=== PATIENT | female | born 1955 | race Caucasian/White ===

== ENCOUNTER → 2018-08-05 11:15 | Outpatient (CLI) | payer BC, SELFPAY ==
--- NOTE | 2018-08-05 11:18 | DI.RAD.S_ITS ---
PROCEDURE: XR KNEE RT 3V INDICATIONS: Right knee pain TECHNIQUE: 3 views of the knee were acquired. COMPARISON: [facility], , KNEE 3V LEFT, 03/08/2007, 10:21. FINDINGS: Bones: No fractures or dislocations. Minimal patellofemoral compartment osteophyte formation suggestive of degenerative change. Soft tissues: No joint effusion. No suspicious soft tissue calcifications. IMPRESSION: Minimal degenerative change with no acute osseous abnormality of the right knee. Dictated by: Alban Nguyen M.D. on 08/05/2018 at 12:30 Approved by: Alban Nguyen M.D. on 08/05/2018 at 12:34
== END ==
PROVIDERS: Family Provider Naturopath; PCP Naturopath; Visit Provider Physician Assistant
DX: M25.561 Pain in right knee (principal)
CPT/HCPCS: 73562

== ENCOUNTER → 2020-02-07 18:44 | Outpatient (ROUT) | payer BC, SELFPAY ==
[2020-02-07 18:53] LABS: Appearance Urine UA CLEAR; Bilirubin Urine UA NEGATIVE (NEGATIVE); Color Urine UA YELLOW; Glucose Urine UA NEGATIVE (Negative); Ketones Urine UA NEGATIVE (NEGATIVE); Leukocyte Esterase Urine UA NEGATIVE (NEGATIVE); Nitrite Urine UA NEGATIVE (Negative); Occult Blood Urine UA 3+ (Negative); Protein Urine UA NEGATIVE (Negative); Specific Gravity Urine UA <=1.005 (1.000-1.035); Urobilinogen Urine UA 0.2 E.U./dL (0.2)
[2020-02-07 19:02] LABS: pH Urine UA 6.5 (4.5-8.0)
[2020-02-07 19:04] LABS: Amorphous Sediment Urine 1+; Bacteria Urine Occasional (0-1); Culture Indicated Urine Cult Not Indicated; RBC Urine 5-10/HPF (0-5/HPF); Squamous Epithelial Cell Urine 1-5 /HPF (0-5/HPF); WBC Urine 0-1/HPF (0-5/HPF)
== END ==
PROVIDERS: Family Provider Naturopath; PCP Naturopath; Visit Provider Naturopath
DX: N39.0 Urinary tract infection, site not specified (principal)
CPT/HCPCS: 81001

== ENCOUNTER 2020-02-09 17:37 | Emergency (ER) | payer BC, SELFPAY ==
[2020-02-09 17:55] VITALS: BP 164/95; PULSE 108; RESP 18; TEMP 36.7; O2SAT 97; BMI 33.6
[2020-02-09 18:52] VITALS: BP 147/82; PULSE 96; TEMP 37.2; O2SAT 97
--- NOTE | 2020-02-09 19:00 | ED.ALLEREA ---
HPI - Allergic Reaction General Chief complaint: Allergic Reaction Stated complaint: cloudy urine,body aches,chest tight,asthma,headach Time Seen by Provider: 02/09/20 18:02 Source: patient Mode of arrival: Ambulatory Limitations: no limitations History of Present Illness HPI narrative: 64F non smoker with history of headaches presents with multiple complaints including about 4-5 days of increasing fatigue, squeezing in her chest, nausea, and excessive thirst as well as pelvic fullness, and dysuria. She was seen and evaluated by her primary care provider and diagnosed with the urinary tract infection without nitrofurantoin. She states that the cloudiness of her urine has impressed but other general symptoms have continued to gradually worsen. She denies any fever or chills. She denies exposure to persons known to have COVID-19. She denies recent travel, history of clot, cancer or lower extremity pain, swelling, redness Onset (ago): day(s) Symptoms: difficulty breathing Severity: moderate Treatment prior to arrival: none Previous Allergic Reaction History: none Related Data Home Medications Medication Instructions Recorded Confirmed MULTIMINERAL/MULTIVITAMIN (MINERAL 1 tab PO Q DAY #0 06/28/12 08/13/19 COMPLEX) PANCRELIPASE (#ENZYMES) 1 tab PO Q DAY #0 06/28/12 08/13/19 Previous Rx's Medication Instructions Recorded estradiol 10 mcg vaginal tablet 10 mcg VAG 2XW #30 tab 02/09/18 benzonatate 100 mg capsule 100 mg PO BID PRN #14 cap 07/25/19 ondansetron 4 mg disintegrating 4 mg PO Q6-8H #14 tab 09/03/19 tablet Allergies Allergy/AdvReac Type Severity Reaction Status Date / Time Proton Pump Inhibitors Allergy Mild MIGRAINES Verified 09/03/19 12:10 [PROTON PUMP INHIBITORS] Review of Systems Constitutional Constitutional: Denies chills, Reports fatigue, Denies fever(s), Denies frequent falls, Reports lethargy and Reports weakness Eyes Eyes: Denies change in vision, Denies eye discharge, Denies irritation and Denies loss of vision ENT Ears, Nose, Mouth, and Throat: Denies change in voice, Denies dizziness, Denies neck pain, Denies sore throat and Denies throat swelling Cardiovascular Cardiovascular: Reports chest pain, Denies irregular heart rhythm, Denies lightheadedness, Denies palpitations, Reports dyspnea, Denies dyspnea on exertion and Denies orthopnea Respiratory Respiratory: Denies cough, Reports dyspnea, Denies dyspnea on exertion and Denies wheezing Gastrointestinal Gastrointestinal: Denies abdominal pain, Denies change in bowel habits, Denies diarrhea, Reports nausea and Denies vomiting Musculoskeletal Musculoskeletal: Denies neck pain and Denies numbness Integumentary/Breasts Skin/Breast: Denies pruritus, Denies erythema, Denies rash and Denies wounds Neurologic Neurologic: Denies behavioral changes, Denies confusion, Denies dizziness, Denies frequent falls, Denies loss of vision, Denies numbness and Reports weakness Psychiatric Psychiatric: Denies anxiety, Denies behavioral changes, Denies confusion, Denies depression, Denies homicidal ideation and Denies suicidal ideation Endocrine Endocrine: Reports fatigue, Denies flushing and Denies palpitations Hematologic/Lymphatic Hematologic/Lymphatic: Denies easy bruising Allergic/Immunologic Allergic/Immunologic: Denies urticaria, Denies throat swelling and Denies wheezing Patient History Surgical History History of repair of hiatal hernia Status post knee surgery Family History Father Stomach cancer Lung cancer Social History Smoking Status: Never smoker Smoking Status: Never smoker alcohol intake frequency: 0-2 drinks per day Substance Use Type: does not use Exam Narrative Exam Narrative: GENERAL: [64] year old patient appears stated age. Well-nourished, well-developed patient, in mild distress. HEAD: Atraumatic. Normocephalic. EYES: Pupils equal round and reactive. Extraocular motions intact. No scleral icterus. No injection or drainage. ENT: Moist mucous membranes Nose without bleeding, purulent drainage. Throat without erythema, tonsillar hypertrophy or exudate. Airway patent. NECK: Trachea midline. Non tender CARDIOVASCULAR: Regular rate and rhythm without murmurs, gallops, or rubs. RESPIRATORY: Clear to auscultation. Breath sounds equal bilaterally. No wheezes, rales, or rhonchi. GASTROINTESTINAL: Abdomen soft, non-tender, nondistended. EXTREMITIES: No edema or joint tenderness. BACK: Nontender without deformity or crepitance. No flank tenderness. NEURO: AOx3. SKIN: No rash or erythema of visible areas Initial Vital Signs Initial Vital Signs: Vital Signs Temperature 98.1 F 02/09/20 17:55 Pulse Rate 108 H 02/09/20 17:55 Respiratory Rate 18 02/09/20 17:55 Blood Pressure 164/95 H 02/09/20 17:55 Pulse Oximetry 97 02/09/20 17:55 Course Orders Ordered: ED Orders 02/09/20 20:10 C-Reactive Protein Quant Stat Complete Blood Count AUTO DIFF Stat Comprehensive Metabolic Panel Stat D Dimer Stat Ferritin Stat Lactate Dehydrogenase Stat Procalcitonin Stat Troponin & CK Cardiac Panel Stat 02/09/20 21:00 Urine Microscopic Stat Discontinued Medications Sodium Chloride (Normal Saline 0.9%) 1,000 mls @ 1,000 mls/hr IV BOLUS ONE Stop: 02/09/20 20:07 Last Infusion: 02/09/20 21:54 Dose: 0 mls/hr Documented by: Admin: 02/09/20 20:03 Dose: 1,000 mls/hr Documented by: BLAYNE Vital Signs Vital signs: Vital Signs - 8 hr 02/09/20 21:30 02/09/20 22:29 Pulse Rate 85 81 Respiratory Rate 18 Blood Pressure [Right Arm] 136/80 139/74 Pulse Oximetry 97 98 MDM - Allergic Reaction Lab Data Result diagrams: 02/09/20 20:10 02/09/20 20:10 Labs: Lab Results 02/09/20 02/09/20 02/09/20 Range/Units 20:10 20:10 20:10 WBC 7.3 (4.5-11.0) X10^3/uL RBC 4.51 (4.0-5.2) X10^6/uL Hgb 13.3 (12.0-16.0) g/dL Hct 39.6 (36-46) % MCV 87.9 (80-100) fL MCH 29.6 (26-34) PG MCHC 33.7 (30-36) % RDW 13.9 (11.6-14.8) % Plt Count 342 (150-400) X10^3/uL Neut % (Auto) 60.4 (50-75) % Lymph % (Auto) 22.5 L (25-40) % [place] % (Auto) 13.6 (3-14) % Eos % (Auto) 2.6 (2-4) % Baso % (Auto) 0.9 (0-2) % Neut # (Auto) 4400 (9624-8180) /uL Lymph # (Auto) 1600 (5138-9296) /uL [place] # (Auto) 1000 H (0-900) /uL Eos # (Auto) 200 (0-450) /uL Baso # (Auto) 100 (0-100) /uL D-Dimer 497 H (<230) ng/mL Sodium 138 (137-145) mmol/L Potassium 3.8 (3.4-5.1) mmol/L Chloride 102 (98-107) mmol/L Carbon Dioxide 27 (22-32) mmol/L BUN 16 (7-17) mg/dL Creatinine 0.66 (0.52-1.04) mg/dL Estimated GFR > 60.0 (>60) mL/min BUN/Creatinine Ratio 24.2 H (6-22) Glucose 109 (80-110) mg/dL Calcium 9.6 (8.4-10.2) mg/dL Ferritin 177 (11-264) ng/mL Total Bilirubin 0.2 (0.2-1.3) mg/dL AST 33 (14-36) IU/L ALT 30 (<35) IU/L Alkaline Phosphatase 102 (38-126) U/L Lactate Dehydrogenase (313-618) U/L Total Creatine Kinase 53 (30-135) U/L CK-MB (CK-2) TNP CK-MB (CK-2) Rel Index TNP Troponin I < 0.012 (0.01-0.034) ng/mL C-Reactive Protein 3.0 H (<1.0) mg/dL Total Protein 7.6 (6.3-8.2) g/dL Albumin 4.4 (3.5-5.0) g/dL Globulin 3.2 (1.7-4.1) g/dL Albumin/Globulin Ratio 1.4 (1.0-2.8) Procalcitonin (<0.5) ng/mL Urine RBC (0-5/HPF) Urine WBC (0-5/HPF) Ur Squamous Epith Cells (0-5/HPF) Urine Bacteria (None) Ur Culture Indicated? 02/09/20 02/09/20 02/09/20 Range/Units 20:10 20:10 21:00 WBC (4.5-11.0) X10^3/uL RBC (4.0-5.2) X10^6/uL Hgb (12.0-16.0) g/dL Hct (36-46) % MCV (80-100) fL MCH (26-34) PG MCHC (30-36) % RDW (11.6-14.8) % Plt Count (150-400) X10^3/uL Neut % (Auto) (50-75) % Lymph % (Auto) (25-40) % [place] % (Auto) (3-14) % Eos % (Auto) (2-4) % Baso % (Auto) (0-2) % Neut # (Auto) (7678-9040) /uL Lymph # (Auto) (3474-4978) /uL [place] # (Auto) (0-900) /uL Eos # (Auto) (0-450) /uL Baso # (Auto) (0-100) /uL D-Dimer (<230) ng/mL Sodium (137-145) mmol/L Potassium (3.4-5.1) mmol/L Chloride (98-107) mmol/L Carbon Dioxide (22-32) mmol/L BUN (7-17) mg/dL Creatinine (0.52-1.04) mg/dL Estimated GFR (>60) mL/min BUN/Creatinine Ratio (6-22) Glucose (80-110) mg/dL Calcium (8.4-10.2) mg/dL Ferritin (11-264) ng/mL Total Bilirubin (0.2-1.3) mg/dL AST (14-36) IU/L ALT (<35) IU/L Alkaline Phosphatase (38-126) U/L Lactate Dehydrogenase 465 (313-618) U/L Total Creatine Kinase (30-135) U/L CK-MB (CK-2) CK-MB (CK-2) Rel Index Troponin I (0.01-0.034) ng/mL C-Reactive Protein (<1.0) mg/dL Total Protein (6.3-8.2) g/dL Albumin (3.5-5.0) g/dL Globulin (1.7-4.1) g/dL Albumin/Globulin Ratio (1.0-2.8) Procalcitonin 0.10 (<0.5) ng/mL Urine RBC 1-5/hpf (0-5/HPF) Urine WBC None seen (0-5/HPF) Ur Squamous Epith Cells 1-5 /hpf (0-5/HPF) Urine Bacteria None seen (None) Ur Culture Indicated? Cult not indicated Urine Dip Bedside Urine Glucose Negative Bedside Urine Bilirubin - Negative Bedside Urine Ketone - Negative Urine Specific [place] 1.015 Bedside Urine Occult Blood +++ Bedside Urine pH 6.0 Bedside Urine Protein - Negative Bedside Urine Urobilinogen - Negative Bedside Urine Nitrite - Negative Bedside Urine Leukocytes - Negative Esterase Imaging Data Chest x-ray: Radiologist's Impression: [address] [address] XRay Report Signed Patient: Leeann Tena [facility]#: [id number] : 7Acct:[id number] Age/Sex: 64 / FDate of Service: 02/09/20 Loc: ED Accession Number: [id number] Procedure: XR chest 1V Ordering Provider: Jose Toth D.O. PROCEDURE: XR CHEST 1V INDICATIONS: SOB, chest tightness TECHNIQUE: One view of the chest was acquired. COMPARISON: [facility], , CHEST 2 VIEW, 07/04/2017, 11:25. FINDINGS: Surgical changes and devices: None. Lungs and pleura: Increase trunk vascular markings and bilateral hilar region are seen. No focal infiltrate. No pleural effusions or pneumothorax. Mediastinum: Mediastinal contours appear normal. Heart size is normal. Bones and chest wall: No suspicious bony lesions. Overlying soft tissues appear unremarkable. IMPRESSION: Finding may represent mild reactive airway disease. No focal infiltrate, pleural effusion or pneumothorax. Dictated by: Jayce Wadsworth M.D. on 02/09/2020 at 19:24 Approved by: Jayce Wadsworth M.D. on 02/09/2020 at 19:25 MDM Narrative Medical decision making narrative: 64F with multiple vague symptoms and concern of allergy to nitrofurantoin, however symptoms started a few days before nitrofurantoin. Subtle lab abnormalities could be consistent with early or mild COVID, swab pending. Though DDimer is elevated it is normal when age corrected. Return precautions given and questions answered to her apparent satisfaction. Discharge Plan Departure Patient Disposition: Home Clinical Impression: Dysuria Fatigue Qualifiers: Fatigue type: unspecified Qualified Code(s): R53.83 - Other fatigue Discharge Date/Time: 02/09/20 22:34 Instructions: DI for Dysuria -- Adult, Coronavirus Disease 2019 Activity Restrictions/Additional Instructions: *You have been diagnosed with [ dysuria and fatigue, your symptoms and some labs are moderately suspicious for coronavirus] *What to do: * per recommendations from the CDC and the [facility] Department of Health * stay home except to get medical care. Restrict activities outside your home, except for getting medical care. Do not go to work, school, or public areas. Avoid using public transportation, ride sharing, or taxis. * separate yourself from other people in your home. * call ahead before visiting your doctor * Wear a facemask * Cover your coughs and sneezes * Clean your hands often * Avoid sharing household items * Clean all high-touch services every day * Monitor your symptoms and seek prompt medical attention if your illness is worsening, particularly with difficulty in breathing. Discussed continuing home isolation * for individuals with symptoms who are confirmed or suspected cases of COVID-19 and are directed to care for themselves at home, discontinue home isolation under the following conditions: 1. At least 72 hours have passed since recovery, defined as resolution of fever without the use of fever reducing medications, and improvement in respiratory symptoms (cough, shortness of breath) AND, 2. At least 7 days have passed since symptoms 1st appeared Individuals with laboratory confirmed COVID-19 who have not had any symptoms may discontinue home isolation when at least 7 days have passed since the date of their 1st COVID-19 diagnostic test and have had no subsequent illness Prescriptions: No Action benzonatate [Tessalon Perles] 100 mg capsule 100 mg PO BID PRN (Reason: cough) Qty: 14 RF: 0 ondansetron 4 mg tablet,disintegrating 4 mg PO Q6-8H Qty: 14 RF: 0 MULTIMINERAL/MULTIVITAMIN (MINERAL COMPLEX) 1 tab PO Q DAY Qty: 0 RF: 0 PANCRELIPASE (#ENZYMES) 1 tab PO Q DAY Qty: 0 RF: 0 estradiol [Yuvafem] 10 mcg tablet 10 mcg VAG 2XW Qty: 30 RF: 8 Referrals: Amina Allen ND [Primary Care Provider] -
--- NOTE | 2020-02-09 19:09 | DI.RAD.S_ITS ---
PROCEDURE: XR CHEST 1V INDICATIONS: SOB, chest tightness TECHNIQUE: One view of the chest was acquired. COMPARISON: [facility], , CHEST 2 VIEW, 07/04/2017, 11:25. FINDINGS: Surgical changes and devices: None. Lungs and pleura: Increase trunk vascular markings and bilateral hilar region are seen. No focal infiltrate. No pleural effusions or pneumothorax. Mediastinum: Mediastinal contours appear normal. Heart size is normal. Bones and chest wall: No suspicious bony lesions. Overlying soft tissues appear unremarkable. IMPRESSION: Finding may represent mild reactive airway disease. No focal infiltrate, pleural effusion or pneumothorax. Dictated by: Jayce Wadsworth M.D. on 02/09/2020 at 19:24 Approved by: Jayce Wadsworth M.D. on 02/09/2020 at 19:25
[2020-02-09] MEDS: SODIUM CHLORIDE 0.9% 1,000 ML 1000 ML IV (20:03)
[2020-02-09 20:25] VITALS: BP 134/82; PULSE 90; O2SAT 97
[2020-02-09 20:26] LABS: Add Manual Diff / Slide Review NO; Basophils Absolute Auto 100 /uL (0-100); Basophils Percent Auto 0.9 % (0-2); Eosinophils Absolute Auto 200 /uL (0-450); Eosinophils Percent Auto 2.6 % (2-4); Hematocrit 39.6 % (36-46); Hemoglobin 13.3 g/dL (12.0-16.0); Lymphocytes Absolute Auto 1600 /uL (1100-4500); Lymphocytes Percent Auto 22.5 % (25-40); Mean Corpuscular HGB Conc 33.7 % (30-36); Mean Corpuscular Hemoglobin 29.6 PG (26-34); Mean Corpuscular Volume 87.9 fL (80-100); Monocytes Absolute Auto 1000 /uL (0-900); Monocytes Percent Auto 13.6 % (3-14); Neutrophils Absolute Auto 4400 /uL (1500-7000); Neutrophils Percent Auto 60.4 % (50-75); Platelet Count 342 X10^3/uL (150-400); Red Blood Cell Count 4.51 X10^6/uL (4.0-5.2); Red Cell Distribution Width 13.9 % (11.6-14.8); White Blood Cell Count 7.3 X10^3/uL (4.5-11.0)
--- NOTE | 2020-02-09 20:26 | PC.NURSE ---
Pt reports over past 5 days has had increasing sx's of fatigue, body aches, and UTI sx's of burning/urgency. Pt states started on antibiotics for UTI x 2 days ago, however reports concern for possible allergic reaction to medication with increasing fatigue and today developing mid sternal chest tightness. Pt denies SOB/STEVIE, pt speaking clear full sentences with ease reports dry cough, for several months, but have had intermittent cough with yellow sputum for past few days. Pt denies any recent injury/trauma to chest, no bruising/swelling noted to chest. Pt denies reproducible pain with palpation to chest. Pt also c/o skin rash to L shoulder that also started x 5 days ago, mild scratch/scab like appearance noted to back of L shoulder, no active drainage or redness noted around site. Pt denies fever/chills, denies any known exposure to persons with similar sx's or Coronavirus. Pt in NAD.
[2020-02-09 20:36] LABS: D Dimer 497 ng/mL (<230)
[2020-02-09 20:37] LABS: Alanine Aminotransferase 30 IU/L (<35); Albumin 4.4 g/dL (3.5-5.0); Albumin Globulin Ratio 1.4 (1.0-2.8); Alkaline Phosphatase 102 U/L (38-126); Aspartate Aminotransferase 33 IU/L (14-36); BUN Creatinine Ratio 24.2 (6-22); Bilirubin Total 0.2 mg/dL (0.2-1.3); Blood Urea Nitrogen 16 mg/dL (7-17); Calcium 9.6 mg/dL (8.4-10.2); Carbon Dioxide 27 mmol/L (22-32); Chloride 102 mmol/L (98-107); Creatine Kinase 53 U/L (30-135); Estimated Glomerular Filt Rate > 60.0 mL/min (>60); Globulin 3.2 g/dL (1.7-4.1); Glucose 109 mg/dL (80-110); HEMOLYSIS < 15 (0-50); Potassium 3.8 mmol/L (3.4-5.1); Sodium 138 mmol/L (137-145); Total Protein 7.6 g/dL (6.3-8.2)
[2020-02-09 20:50] LABS: Troponin I < 0.012 ng/mL (0.01-0.034)
[2020-02-09 21:12] LABS: Lactate Dehydrogenase 465 U/L (313-618)
[2020-02-09 21:13] LABS: Ferritin 177 ng/mL (11-264)
[2020-02-09 21:18] LABS: Bacteria Urine None Seen; WBC Urine None Seen (0-5/HPF)
[2020-02-09 21:30] VITALS: BP 136/80; PULSE 85; O2SAT 97
[2020-02-09 21:37] LABS: Culture Indicated Urine Cult Not Indicated; RBC Urine 1-5/HPF (0-5/HPF); Squamous Epithelial Cell Urine 1-5 /HPF (0-5/HPF)
[2020-02-09 22:29] VITALS: BP 139/74; PULSE 81; RESP 18; O2SAT 98
[2020-02-11 19:50] LABS: COVID19 Sendout Not Detected (Not Detect)
== END 2020-02-09 22:34 | disposition home or self-care (01) ==
PROVIDERS: Emergency Provider Emergency Medicine; Family Provider Naturopath; PCP Naturopath
DX: R30.0 Dysuria (principal); R53.83 Other fatigue; R06.02 Shortness of breath; R07.89 Other chest pain
CPT/HCPCS: 36415; 71045; 80053; 81003; 81015; 82550; 82728; 83615; 84145; 84484; 85025; 85379; 86140; 87635; 93005; 96360; 96361; 99284

== ENCOUNTER → 2020-02-14 08:00 | Outpatient (CLI) | payer BC, SELFPAY ==
[2020-02-14 08:54] LABS: Add Manual Diff / Slide Review NO; Basophils Absolute Auto 100 /uL (0-100); Eosinophils Absolute Auto 200 /uL (0-450); Eosinophils Percent Auto 2.3 % (2-4); Hematocrit 38.9 % (36-46); Hemoglobin 13.1 g/dL (12.0-16.0); Lymphocytes Absolute Auto 2000 /uL (1100-4500); Lymphocytes Percent Auto 22.8 % (25-40); Mean Corpuscular HGB Conc 33.8 % (30-36); Mean Corpuscular Hemoglobin 29.7 PG (26-34); Monocytes Absolute Auto 700 /uL (0-900); Monocytes Percent Auto 8.1 % (3-14); Neutrophils Absolute Auto 5600 /uL (1500-7000); Neutrophils Percent Auto 65.8 % (50-75); Platelet Count 392 X10^3/uL (150-400); Red Blood Cell Count 4.42 X10^6/uL (4.0-5.2); Red Cell Distribution Width 13.8 % (11.6-14.8); White Blood Cell Count 8.6 X10^3/uL (4.5-11.0)
[2020-02-14 08:58] LABS: Prothrombin Time 11.5 SECONDS (10.1-12.7)
[2020-02-14 09:01] LABS: D Dimer 469 ng/mL (<230)
== END ==
PROVIDERS: Family Provider Naturopath; PCP Naturopath; Referring Provider Naturopath; Visit Provider Naturopath
DX: R79.1 Abnormal coagulation profile (principal)
CPT/HCPCS: 36415; 85025; 85379; 85610; 86140

== ENCOUNTER → 2020-03-24 13:30 | Outpatient (CLI) | payer BC, SELFPAY ==
--- NOTE | 2020-03-24 | DI.US.S_ITS ---
PROCEDURE: US ABDOMEN COMPLETE INDICATIONS: LEFT UPPER QUADRANT PAIN TECHNIQUE: Real-time scanning was performed of the abdominal and retroperitoneal organs, with image documentation. COMPARISON: [facility], US, ABDOMEN COMPLETE, 08/25/2015, 15:36. FINDINGS: Liver: Liver is normal in size and homogeneous in echotexture. Simple appearing incidental hepatic cyst measuring 1.2 cm. Gallbladder: Unremarkable. No sonographic Desouza sign. Biliary ducts: Intrahepatic bile ducts are non-dilated. Extrahepatic bile duct caliber measures 3-4 mm. Normal is 6-7 mm or less in diameter, or 10 mm or less post-cholecystectomy. Pancreas: Visualized portions of the pancreas are sonographically normal. Spleen: Spleen is normal in size and homogeneous in echotexture. Kidneys: Kidneys are normal in size and echotexture. Right kidney measures 9.9 cm long; left kidney measures 10.0 cm long. No hydronephrosis or nephrolithiasis. No solid masses. Aorta: Visualized aorta is normal in caliber at less than 3 cm. Iliacs: Proximal common iliac arteries are normal in caliber at less than 2.5 cm. IVC: Intrahepatic inferior vena cava is patent. Miscellaneous: No free abdominal fluid. IMPRESSION: Negative examination as above. Dictated by: Long Forman M.D. on 03/24/2020 at 16:21 Approved by: Long Forman M.D. on 03/24/2020 at 16:23
[2020-03-24 14:48] LABS: Add Manual Diff / Slide Review NO; Basophils Absolute Auto 100 /uL (0-100); Basophils Percent Auto 0.9 % (0-2); Eosinophils Absolute Auto 200 /uL (0-450); Eosinophils Percent Auto 1.9 % (2-4); Hematocrit 38.9 % (36-46); Hemoglobin 12.8 g/dL (12.0-16.0); Lymphocytes Absolute Auto 2300 /uL (1100-4500); Lymphocytes Percent Auto 20.2 % (25-40); Mean Corpuscular HGB Conc 32.8 % (30-36); Mean Corpuscular Hemoglobin 28.9 PG (26-34); Mean Corpuscular Volume 87.9 fL (80-100); Monocytes Absolute Auto 900 /uL (0-900); Monocytes Percent Auto 7.8 % (3-14); Neutrophils Absolute Auto 8000 /uL (1500-7000); Neutrophils Percent Auto 69.2 % (50-75); Platelet Count 397 X10^3/uL (150-400); Red Blood Cell Count 4.42 X10^6/uL (4.0-5.2); Red Cell Distribution Width 13.9 % (11.6-14.8); White Blood Cell Count 11.5 X10^3/uL (4.5-11.0)
[2020-03-24 15:07] LABS: Alanine Aminotransferase 17 IU/L (<35); Albumin 4.5 g/dL (3.5-5.0); Albumin Globulin Ratio 1.4 (1.0-2.8); Alkaline Phosphatase 96 U/L (38-126); Aspartate Aminotransferase 28 IU/L (14-36); Bilirubin Total 0.3 mg/dL (0.2-1.3); Bilirubin Unconjugated 0.2 mg/dL (0.0-1.1); Globulin 3.2 g/dL (1.7-4.1); HEMOLYSIS 27 (0-50); Total Protein 7.7 g/dL (6.3-8.2)
[2020-03-24 16:34] LABS: Thyroid Stimulating Hormone 1.44 uIU/mL (0.47-4.68)
== END ==
PROVIDERS: Family Provider Naturopath; PCP Naturopath; Referring Provider Naturopath; Visit Provider Naturopath
DX: R10.12 Left upper quadrant pain (principal); D72.829 Elevated white blood cell count, unspecified; R94.5 Abnormal results of liver function studies; R79.89 Other specified abnormal findings of blood chemistry; R53.83 Other fatigue
CPT/HCPCS: 36415; 76700; 80076; 84443; 85025

== ENCOUNTER → 2020-03-26 10:24 | Outpatient (CLI) | payer BC, SELFPAY ==
[2020-03-26 10:40] LABS: Bacteria Urine None Seen; WBC Urine None Seen (0-5/HPF)
[2020-03-26 11:50] LABS: Appearance Urine UA CLEAR; Bilirubin Urine UA NEGATIVE (NEGATIVE); Color Urine UA YELLOW; Glucose Urine UA NEGATIVE (Negative); Ketones Urine UA NEGATIVE (NEGATIVE); Leukocyte Esterase Urine UA NEGATIVE (NEGATIVE); Nitrite Urine UA NEGATIVE (Negative); Occult Blood Urine UA 3+ (Negative); Protein Urine UA NEGATIVE (Negative); Urobilinogen Urine UA 0.2 E.U./dL (0.2)
[2020-03-26 11:54] LABS: Culture Indicated Urine Cult Not Indicated; RBC Urine 5-10/HPF (0-5/HPF); Squamous Epithelial Cell Urine 1-5 /HPF (0-5/HPF)
[2020-03-26 12:03] LABS: Erythrocyte Sedimentation Rate 54 MM/HR (0-20)
[2020-03-26 12:24] LABS: C-Reactive Protein Quant 3.1 mg/dL (<1.0)
[2020-03-26 13:10] LABS: Vitamin B12 965 pg/mL (239-931)
[2020-03-27 21:36] LABS: ANA Screen, IFA Negative (.)
[2020-03-28 09:09] LABS: Albumin 3.4 g/dL (2.9-4.4); Alpha-1-Globulin 0.3 g/dL (0.0-0.4); Globulin Total 3.4 g/dL (2.2-3.9); Protein, Total 6.8 g/dL (6.0-8.5)
[2020-03-31 10:32] LABS: BUN Creatinine Ratio 26.8 (6-22); Blood Urea Nitrogen 26 mg/dL (7-17)
== END ==
PROVIDERS: Family Provider Naturopath; PCP Naturopath; Referring Provider Student in an Organized Health Care Education/Training Program; Visit Provider Student in an Organized Health Care Education/Training Program
DX: G62.9 Polyneuropathy, unspecified (principal); R31.9 Hematuria, unspecified; W57.XXXA Bitten or stung by nonvenomous insect and other nonvenomous arthropods, initial encounter
CPT/HCPCS: 36415; 81001; 82565; 82607; 84155; 84165; 84520; 85651; 86038; 86140; 86617

== ENCOUNTER → 2020-03-28 09:42 | Outpatient (CLI) | payer BC, SELFPAY | PROVIDERS: Family Provider Naturopath; PCP Naturopath | DX: Z13.820 Encounter for screening for osteoporosis (principal); M85.88 Other specified disorders of bone density and structure, other site; Z78.0 Asymptomatic menopausal state | CPT/HCPCS: 77080 ==

== ENCOUNTER → 2020-04-02 08:08 | Outpatient (CLI) | payer BC, SELFPAY ==
--- NOTE | 2020-04-02 08:09 | DI.CT.S_ITS ---
PROCEDURE: CT KIDNEY URETER BLADDER (KUB) INDICATIONS: Persistant hematuria TECHNIQUE: Noncontrast 5 mm thick sections acquired from the diaphragms to the symphysis. 5 mm thick coronal and sagittal reformats were then performed. For radiation dose reduction, the following was used: automated exposure control, adjustment of mA and/or kV according to patient size. COMPARISON: None. FINDINGS: Image quality: Excellent. Lung bases: Lung bases are clear. Heart size is normal. Small hiatal hernia. Urinary system: Both kidneys are normal in size. No kidney stones. No hydronephrosis or perinephric fat stranding. Both ureters appear non-dilated throughout their expected courses. Small phleboliths in the pelvis. Bladder is unremarkable; no calcified bladder stones. Other solid organs: Liver is normal in size. Well-circumscribed hypodensity in the left lobe of the liver most likely represents a benign cyst or hemangioma. Gallbladder is contracted. Pancreas is normal in contours. Punctate pancreatic calcification, unchanged. Mild fatty atrophy. Spleen is normal in size. No adrenal nodules. Peritoneum and bowel: Unenhanced bowel loops demonstrate normal wall thickness and caliber. Tiny colonic diverticuli. Normal appendix. No free fluid or air. Nodes and vessels: No retroperitoneal or mesenteric adenopathy by size criteria. Aorta and inferior vena cava are normal in caliber. Abdominal wall: No ventral hernias. Uterus is unremarkable. Pelvis: No free pelvic fluid. Small fat containing right inguinal hernia. No adenopathy. Bones: No suspicious bony lesions. No vertebral body compression fractures. IMPRESSION: 1. No kidney stones. No hydronephrosis. 2. No obvious renal contour abnormality to suggest mass. 3. No bladder stone. If clinically indicated consider further evaluation with CT IVP in this patient with hematuria. Dictated by: Heriberto Bella M.D. on 04/02/2020 at 9:55 Approved by: Heriberto Bella M.D. on 04/02/2020 at 10:03
== END ==
PROVIDERS: Family Provider Naturopath; PCP Student in an Organized Health Care Education/Training Program; Referring Provider Student in an Organized Health Care Education/Training Program; Visit Provider Student in an Organized Health Care Education/Training Program
DX: R31.9 Hematuria, unspecified (principal)
CPT/HCPCS: 74176

== ENCOUNTER → 2020-04-18 16:05 | Outpatient (CLI) | payer BC, SELFPAY ==
--- NOTE | 2020-04-18 16:24 | DI.MG.S_ITS ---
Patient Name: ONEYDA ONTIVEROS date: 1955 Sex: F Attending Physician: Chuck Indications: Date: 04/18/2020 16:21 At the request of: LUZ AMIN Procedure: MM screening mammo BI BILATERAL DIGITAL SCREENING MAMMOGRAM 3D/2D WITH CAD: 04/18/2020 CLINICAL: Routine screening. Comparison is made to exams dated: 03/29/2017 mammogram, 03/21/2017 mammogram, and 03/18/2016 mammogram - [facility]. There are scattered fibroglandular elements in both breasts. Current study was also evaluated with a Computer Aided Detection (CAD) system. There are benign calcifications in both breasts. No significant masses, calcifications, or other findings are seen in either breast. There has been no significant interval change. IMPRESSION: BENIGN There is no mammographic evidence of malignancy. A 1 year screening mammogram is recommended. This exam was interpreted at Station ID: [id number]. NOTE: For mammograms, a report in lay terms will be sent to the patient. Approximately 15% of breast malignancies will not be visualized mammographically. In the management of a palpable breast mass, a negative mammogram must not discourage biopsy of a clinically suspicious lesion. Electronically Signed By: Chun shipman/lionel:04/18/2020 17:49:40 letter sent: Normal Exam ACR BI-RADS Category 2: Benign Finding(s) 3342F
== END ==
PROVIDERS: Family Provider Naturopath; PCP Naturopath
DX: Z12.31 Encounter for screening mammogram for malignant neoplasm of breast (principal)
CPT/HCPCS: 77063; 77067

== ENCOUNTER → 2020-04-22 11:26 | Outpatient (CLI) | payer BC, SELFPAY ==
[2020-04-23 09:27] LABS: COVID19 Sendout Not Detected (Not Detect)
== END ==
PROVIDERS: Family Provider Naturopath; PCP Naturopath; Visit Provider Nurse Practitioner
DX: Z11.59 Encounter for screening for other viral diseases (principal)
CPT/HCPCS: 87635

== ENCOUNTER 2020-04-25 09:02 | Day surgery (SDC) | payer BC, SELFPAY ==
[2020-04-25] VITALS (8 sets, daily range): BP systolic 116–140; BP diastolic 68–93; PULSE 86–110; RESP 10–20; TEMP 36.9–37; O2SAT 93–99; BMI 33.6
[2020-04-25] MEDS: SODIUM CHLORIDE 0.9% 1,000 ML 200 ML IV (09:14)
--- NOTE | 2020-04-25 09:29 | PM.HP.1 ---
History of Present Illness History of Present Illness Date Patient Seen: 04/25/20 Time Patient Seen: 09:29 Chief complaint: SCREENING COLONOSCOPY Narrative: This is a 64-year-old woman who had a prior colonoscopy in 2011, with recommendation for repeat colonoscopy at this time. She says the polyps were found in the prior colonoscopy, although I do not have access to that note. She denies any melena, hematochezia, unexplained abdominal pain, unexplained weight loss. She denies any family history of colon cancer colon polyps. ROS: Some peripheral neuropathy. Thirteen system review is otherwise negative other than as mentioned below and in HPI. PE GENERAL: Well groomed and cooperative. Appears stated age. Answers questions promptly and appropriately. Vital signs noted. HENT: Normocephalic, atraumatic. Hearing intact. EYES: Conjunctiva pink, sclera white, no periorbital swelling. CARDIOVASCULAR: Regular rate. No pedal edema. RESPIRATORY: Non-tachypneic, breathing comfortably on room air. GASTROINTESTINAL: Abdomen soft and non-distended GENITALURINARY: No flank tenderness. MUSCULOSKELETAL: Equal tone and mass bilaterally. SKIN: Warm, dry, soft, appropriate color for ethnicity. No other lesions, rashes, or wounds. NEURO: Alert and Oriented X 3. No gross sensory deficits, or cognitive issues. PSYCH: Appropriate affect and mood. Patient History Surgical History History of repair of hiatal hernia Status post knee surgery Family & Social History Family History Father Stomach cancer Lung cancer Tobacco & Substance use: Smoking Status Never smoker alcohol intake frequency 0-2 drinks per day Substance Use Type does not use Meds Home Medications and Allergies Home Medications Medication Instructions Recorded Confirmed Type MULTIMINERAL/MULTIVITAMIN (MINERAL 1 tab PO Q DAY #0 06/28/12 03/26/20 History COMPLEX) PANCRELIPASE (#ENZYMES) 1 tab PO Q DAY #0 06/28/12 03/26/20 History estradiol 10 mcg vaginal tablet 10 mcg VAG 2XW #30 tab 02/09/18 03/26/20 Rx Bone-Up by [employer] 6 cap PO .QD 04/08/20 History Allergies Allergy/AdvReac Type Severity Reaction Status Date / Time Proton Pump Inhibitors Allergy Mild MIGRAINES Verified 04/22/20 11:25 [PROTON PUMP INHIBITORS] Assessment & Plan Assessment and plan (1) Personal history of colonic polyps: Status: Acute Assessment & Plan narrative: Risks and benefits of screening colonoscopy and possible polypectomy were discussed with the patient including risk of bleeding, perforation, need for additional procedures, risks of anesthesia. The patient desires to proceed with the colonoscopy procedure. COVID-19 COVID-19 status: Negative Result date/Date tested (Pos, Neg/Pending): 04/22/20 Time Spent With Patient Time with patient: 15-24 minutes Quality VTE Deep Vein Thrombosis/Pulmonary Embolism Present on Admission: No
[2020-04-25] MEDS: MIDAZOLAM 5 MG/5 ML VIAL IV ×3 (09:55→10:03)
[2020-04-25] MEDS: fentaNYL 250 MCG/5 ML INJ IV ×2 (09:55→10:03)
--- NOTE | 2020-04-25 09:55 | P.OP.ENDO_ITS ---
Operative Date/Time/Diagnoses Date of procedure: 04/25/20 Time of procedure: 09:55 Pre-op diagnosis: Normal colonoscopy 12 years ago, here for follow-up colonoscopy Post-op diagnosis: other (Normal colon) Procedure & Clinicians Study performed: Colonoscopy Conscious sedation performed by the endoscopist Indications: Normal colonoscopy 12 years ago, here for follow-up colonoscopy Surgeon: Ann Valiente Procedure Notes SCOAP/Timeout: Performed Procedure in detail: The patient was brought to the room and placed in left lateral decubitus position with all bony prominences padded. A time-out was performed and then the patient was given procedural sedation starting with 4 mg of Versed and 100 mcg of fentanyl. A total of 5 mg of Versed and 150 micro g of fentanyl were given for the entire procedure. Vitals were monitored throughout the procedure and remained stable. Once adequately sedated, the procedure was begun. A rectal exam was performed revealing no abnormalities. The colonoscope was then introduced to the rectum and advanced to the cecum in the usual fashion. The cecum was identified by the appendiceal orifice, the mucosal tri- fold, and the ileocecal valve. The scope was then retracted while rotating side to side and examining each mucosal fold. No polyps or other abnormalities were seen. At the conclusion of the procedure retroflexion was performed and small grade 1-2 internal hemorrhoids without stigmata of bleeding were seen. The scope was then withdrawn from the rectum the procedure was concluded. The patient tolerated the procedure well and was transferred to the PACU in stable condition. Scope withdrawal time: 8 Sedation minutes: 15 Findings: internal hemorrhoids (Small internal hemorrhoids) Specimen(s): none sent Complications: none Impression: Normal colon, small internal hemorrhoids Post-procedure Recommendations: Colonscopy in 10 years Follow up: as needed Disposition: PACU
--- NOTE | 2020-04-25 10:52 | SUR.PHASEII ---
patient tolerating po. Denies pain.
== END 2020-04-25 11:20 | disposition home or self-care (01) ==
PROVIDERS: Family Provider Naturopath; PCP Naturopath; Referring Provider Naturopath; Visit Provider Surgery
PROC: 0DJD8ZZ Inspection of Lower Intestinal Tract, Via Natural or Artificial Opening Endoscopic (ICD-10-PCS; CPT 45378; principal; 2020-04-25 10:00)
DX: Z12.11 Encounter for screening for malignant neoplasm of colon (principal); K64.0 First degree hemorrhoids
CPT/HCPCS: 45378; 99152; J2250; J3010

== ENCOUNTER → 2020-07-10 11:47 | Outpatient (CLI) | payer BC, SELFPAY ==
[2020-07-10 13:16] LABS: BUN Creatinine Ratio 21.6 (6-22); Blood Urea Nitrogen 19 mg/dL (7-17); Calcium 9.6 mg/dL (8.4-10.2); Carbon Dioxide 31 mmol/L (22-32); Chloride 99 mmol/L (98-107); Estimated Glomerular Filt Rate > 60.0 mL/min (>60); Glucose 91 mg/dL (80-110); HEMOLYSIS < 15 (0-50); Potassium 3.9 mmol/L (3.4-5.1); Sodium 136 mmol/L (137-145)
== END ==
PROVIDERS: Family Provider Naturopath; PCP Naturopath; Referring Provider Specialist; Visit Provider Specialist
DX: N28.9 Disorder of kidney and ureter, unspecified (principal)
CPT/HCPCS: 36415; 80048

== ENCOUNTER → 2020-07-14 13:41 | Outpatient (CLI) | payer BC, SELFPAY ==
--- NOTE | 2020-07-14 13:43 | DI.CT.S_ITS ---
PROCEDURE: CT ABDOMEN PELVIS WO/W CON INDICATIONS: hematuria TECHNIQUE: Optional 5 mm thick noncontrast images acquired from the diaphragm to the symphysis pubis. After the administration of intravenous contrast, 5 mm thick images acquired from the diaphragm to the symphysis pubis after a 10-minute delay. 2 mm thick coronal and sagittal reformats were then performed of the kidneys and ureters. For radiation dose reduction, the following was used: automated exposure control, adjustment of mA and/or kV according to patient size. COMPARISON: None. FINDINGS: Image quality: Excellent. Lung bases: Lung bases are clear. Heart size is normal. Urinary system: Both kidneys are normal in size, without hydronephrosis or nephrolithiasis on pre-contrast images. No perinephric fat stranding. There is normal bilateral renal enhancement. Renal calyces appear normal in morphology when filled with contrast. Opacified portions of both ureters demonstrate normal caliber. Bladder wall thickness is normal. No calcified bladder stones. Other solid organs: Liver is normal in size and enhancement. Gallbladder appears normal . Biliary system is non dilated. Pancreas enhances normally. Spleen is normal in size and enhancement. No adrenal nodules. Peritoneum and bowel: Bowel loops demonstrate normal wall thickness and caliber. No free fluid or air. Nodes and vessels: No retroperitoneal or mesenteric adenopathy by size criteria. Aorta and inferior vena cava are normal in size. Abdominal wall: No ventral hernias. Pelvis: No pathologic free pelvic fluid. No inguinal hernias or adenopathy. Bones: No suspicious bony lesions. No vertebral body compression fractures. IMPRESSION: A urinary tract stone is not found. A urothelial or renal cortical mass is not identified. Source of micro hematuria is not seen. Dictated by: Juan R Bravo M.D. on 07/14/2020 at 16:02 Approved by: Juan R Bravo M.D. on 07/14/2020 at 16:03
== END ==
PROVIDERS: Family Provider Naturopath; PCP Naturopath; Referring Provider Specialist; Visit Provider Specialist
DX: R31.9 Hematuria, unspecified (principal)
CPT/HCPCS: 74178; Q9967

== ENCOUNTER → 2020-09-17 07:46 | Outpatient (CLI) | payer BC, SELFPAY ==
[2020-09-17 09:24] LABS: Hematocrit 39.5 % (36-46); Hemoglobin 12.9 g/dL (12.0-16.0); Mean Corpuscular HGB Conc 32.6 % (30-36); Mean Corpuscular Hemoglobin 28.9 PG (26-34); Mean Corpuscular Volume 88.6 fL (80-100); Platelet Count 404 X10^3/uL (150-400); Red Blood Cell Count 4.46 X10^6/uL (4.0-5.2); Red Cell Distribution Width 14.2 % (11.6-14.8); White Blood Cell Count 9.4 X10^3/uL (4.5-11.0)
[2020-09-17 09:48] LABS: BUN Creatinine Ratio 16.1 (6-22); Blood Urea Nitrogen 18 mg/dL (7-17); Calcium 9.2 mg/dL (8.4-10.2); Carbon Dioxide 32 mmol/L (22-32); Chloride 102 mmol/L (98-107); Estimated Glomerular Filt Rate 49.1 mL/min (>60); Glucose 81 mg/dL (80-110); HEMOLYSIS < 15 (0-50); Potassium 4.3 mmol/L (3.4-5.1); Sodium 137 mmol/L (137-145)
[2020-09-17 09:53] LABS: Creatinine Urine Random 74.8 mg/dL; Protein (Total) Urine Random 13 mg/dL (0-12); Protein Creatinine Ratio Urine 0.17 GRAM/24H
== END ==
PROVIDERS: Family Provider Naturopath; PCP Naturopath; Referring Provider Student in an Organized Health Care Education/Training Program; Visit Provider Student in an Organized Health Care Education/Training Program
DX: N05.9 Unspecified nephritic syndrome with unspecified morphologic changes (principal); D70.9 Neutropenia, unspecified; R80.9 Proteinuria, unspecified
CPT/HCPCS: 36415; 80048; 82570; 84156; 85027

== ENCOUNTER → 2020-09-26 09:05 | Outpatient (CLI) | payer BC, SELFPAY ==
[2020-09-26 09:33] LABS: Bacteria Urine None Seen; WBC Urine None Seen (0-5/HPF)
[2020-09-26 10:49] LABS: Appearance Urine UA CLEAR; Bilirubin Urine UA NEGATIVE (NEGATIVE); Color Urine UA YELLOW; Glucose Urine UA NEGATIVE (Negative); Ketones Urine UA NEGATIVE (NEGATIVE); Leukocyte Esterase Urine UA NEGATIVE (NEGATIVE); Nitrite Urine UA NEGATIVE (Negative); Occult Blood Urine UA 3+ (Negative); Protein Urine UA NEGATIVE (Negative); Specific Gravity Urine UA <=1.005 (1.000-1.035); Urobilinogen Urine UA 0.2 E.U./dL (0.2)
[2020-09-26 10:50] LABS: pH Urine UA 6.5 (4.5-8.0)
[2020-09-26 10:58] LABS: Culture Indicated Urine Cult Not Indicated; RBC Urine 5-10/HPF (0-5/HPF); Squamous Epithelial Cell Urine 1-5 /HPF (0-5/HPF)
[2020-09-26 11:19] LABS: Creatinine Urine Random 22.2 mg/dL; Protein (Total) Urine Random 15 mg/dL (0-12); Protein Creatinine Ratio Urine 0.67 GRAM/24H
[2020-09-26 15:10] LABS: Hepatitis B Surface Antigen NEGATIVE s/c (NEGATIVE)
[2020-09-26 15:24] LABS: Hep C Virus Ab w/Reflex Quant NEGATIVE s/c (NEGATIVE)
[2020-09-27 04:16] LABS: Hepatitis B Core Antibody Negative (Negative)
[2020-09-27 06:09] LABS: Complement C3 188 mg/dL (82-167)
[2020-09-27 07:36] LABS: Hepatitis B Surf Ab Qualitativ Non Reactive (.)
[2020-09-27 18:07] LABS: DNA (DS) Antibody 1 IU/mL (0-9)
[2020-09-28 19:26] LABS: ANA Screen, IFA Positive (.)
[2020-09-29 16:27] LABS: Albumin 3.8 g/dL (2.9-4.4); Alpha 1 Globulin 0.3 g/dL (0.0-0.4); Alpha 2 Globulin 0.9 g/dL (0.4-1.0); Beta 1 Globulin 1.2 g/dL (0.7-1.3); Gamma Globulin 1.1 g/dL (0.4-1.8); Protein, Total 7.2 g/dL (6.0-8.5)
[2020-09-30 09:09] LABS: Immunoglobulin A, Serum 105 mg/dL (87-352); Immunoglobulin G,Serum 955 mg/dL (586-1602); Immunoglobulin M, Serum 273 mg/dL (26-217)
[2020-09-30 12:38] LABS: Cytoplasmic C-ANCA <1:20 titer (Neg:<1:20); Perinuclear P-ANCA <1:20 titer (Neg:<1:20)
[2020-09-30 13:36] LABS: M-Spike % Not Observed % (Not Observed); Urine Total Protein <4.0 mg/dL (Not Estab.)
== END ==
PROVIDERS: Family Provider Naturopath; PCP Naturopath; Referring Provider Student in an Organized Health Care Education/Training Program; Visit Provider Student in an Organized Health Care Education/Training Program
DX: L93.2 Other local lupus erythematosus (principal); M31.30 Wegener's granulomatosis without renal involvement; M32.10 Systemic lupus erythematosus, organ or system involvement unspecified; N00.9 Acute nephritic syndrome with unspecified morphologic changes; D89.89 Other specified disorders involving the immune mechanism, not elsewhere classified; B19.10 Unspecified viral hepatitis B without hepatic coma; B17.10 Acute hepatitis C without hepatic coma; D47.2 Monoclonal gammopathy; N30.00 Acute cystitis without hematuria; R80.9 Proteinuria, unspecified
CPT/HCPCS: 36415; 81001; 82570; 82784; 83516; 84155; 84156; 84165; 84166; 86038; 86160; 86225; 86256; 86334; 86335; 86704; 86706; 86803; 87340

== ENCOUNTER → 2020-10-09 15:58 | Outpatient (CLI) | payer BC, SELFPAY ==
[2020-10-09 17:07] LABS: Appearance Urine UA CLEAR; Bilirubin Urine UA NEGATIVE (NEGATIVE); Color Urine UA YELLOW; Glucose Urine UA NEGATIVE (Negative); Ketones Urine UA NEGATIVE (NEGATIVE); Leukocyte Esterase Urine UA NEGATIVE (NEGATIVE); Nitrite Urine UA NEGATIVE (Negative); Occult Blood Urine UA 3+ (Negative); Protein Urine UA NEGATIVE (Negative); Urobilinogen Urine UA 0.2 E.U./dL (0.2)
[2020-10-09 17:08] LABS: Hematocrit 37.7 % (36-46); Hemoglobin 12.7 g/dL (12.0-16.0)
[2020-10-09 17:21] LABS: Amorphous Sediment Urine 1+; Bacteria Urine Occasional (0-1); Culture Indicated Urine Cult Not Indicated; Mucus Urine 1+ (Negative); RBC Urine 5-10/HPF (0-5/HPF); Squamous Epithelial Cell Urine 5-10 /HPF (0-5/HPF); WBC Urine 1-5/HPF (0-5/HPF)
[2020-10-09 17:36] LABS: BUN Creatinine Ratio 26.2 (6-22); Blood Urea Nitrogen 22 mg/dL (7-17); Carbon Dioxide 31 mmol/L (22-32); Chloride 99 mmol/L (98-107); Estimated Glomerular Filt Rate > 60.0 mL/min (>60); Glucose 113 mg/dL (80-110); HEMOLYSIS < 15 (0-50); Potassium 3.9 mmol/L (3.4-5.1); Sodium 136 mmol/L (137-145)
[2020-10-09 17:37] LABS: Protein (Total) Urine Random 10 mg/dL (0-12); Protein Creatinine Ratio Urine 0.06 GRAM/24H
[2020-10-10 06:28] LABS: Parathyroid Hormone Int 65 pg/mL (15-65)
== END ==
PROVIDERS: Family Provider Naturopath; PCP Naturopath; Referring Provider Student in an Organized Health Care Education/Training Program; Visit Provider Student in an Organized Health Care Education/Training Program
DX: N05.9 Unspecified nephritic syndrome with unspecified morphologic changes (principal); D64.9 Anemia, unspecified; N25.81 Secondary hyperparathyroidism of renal origin; N30.00 Acute cystitis without hematuria; R80.9 Proteinuria, unspecified
CPT/HCPCS: 36415; 80048; 81001; 82570; 83970; 84156; 85014; 85018

== ENCOUNTER → 2021-01-15 07:26 | Outpatient (CLI) | payer BC, SELFPAY ==
[2021-01-15 07:40] LABS: Bacteria Urine None Seen
[2021-01-15 08:01] LABS: Appearance Urine UA CLEAR; Bilirubin Urine UA NEGATIVE (NEGATIVE); Color Urine UA YELLOW; Glucose Urine UA NEGATIVE (Negative); Ketones Urine UA NEGATIVE (NEGATIVE); Leukocyte Esterase Urine UA NEGATIVE (NEGATIVE); Nitrite Urine UA NEGATIVE (Negative); Occult Blood Urine UA 3+ (Negative); Protein Urine UA NEGATIVE (Negative); Specific Gravity Urine UA <=1.005 (1.000-1.035); Urobilinogen Urine UA 0.2 E.U./dL (0.2)
[2021-01-15 08:16] LABS: RBC Urine 5-10/HPF (0-5/HPF); WBC Urine 0-1/HPF (0-5/HPF)
[2021-01-15 08:17] LABS: Culture Indicated Urine Cult Not Indicated; Squamous Epithelial Cell Urine 1-5 /HPF (0-5/HPF)
[2021-01-15 09:25] LABS: Protein (Total) Urine Random 14 mg/dL (0-12)
[2021-01-15 09:26] LABS: Blood Urea Nitrogen 19 mg/dL (7-17); Calcium 9.9 mg/dL (8.4-10.2); Carbon Dioxide 33 mmol/L (22-32); Chloride 98 mmol/L (98-107); Estimated Glomerular Filt Rate > 60.0 mL/min (>60); Glucose 86 mg/dL (80-110); HEMOLYSIS < 15 (0-50); Potassium 4.8 mmol/L (3.4-5.1); Sodium 137 mmol/L (137-145)
[2021-01-15 09:32] LABS: Creatinine Urine Random 17.7 mg/dL; Protein Creatinine Ratio Urine 0.79 GRAM/24H
== END ==
PROVIDERS: Family Provider Naturopath; PCP Naturopath; Referring Provider Student in an Organized Health Care Education/Training Program; Visit Provider Student in an Organized Health Care Education/Training Program
DX: N05.9 Unspecified nephritic syndrome with unspecified morphologic changes (principal); N30.00 Acute cystitis without hematuria; R80.9 Proteinuria, unspecified
CPT/HCPCS: 36415; 80048; 81001; 82570; 84156

== ENCOUNTER → 2021-03-20 11:19 | Outpatient (CLI) | payer BC, SELFPAY ==
[2021-03-20 12:23] LABS: Blood Urea Nitrogen 15 mg/dL (7-17); Calcium 9.4 mg/dL (8.4-10.2); Carbon Dioxide 25 mmol/L (22-32); Chloride 101 mmol/L (98-107); Estimated Glomerular Filt Rate > 60.0 mL/min (>60); Glucose 143 mg/dL (80-110); HEMOLYSIS < 15 (0-50); Potassium 4.1 mmol/L (3.4-5.1); Sodium 136 mmol/L (137-145)
[2021-03-20 12:41] LABS: Creatinine Urine Random 23.9 mg/dL; Protein (Total) Urine Random 12 mg/dL (0-12)
== END ==
PROVIDERS: Referring Provider Student in an Organized Health Care Education/Training Program; Visit Provider Student in an Organized Health Care Education/Training Program
DX: N05.9 Unspecified nephritic syndrome with unspecified morphologic changes (principal); R80.9 Proteinuria, unspecified
CPT/HCPCS: 36415; 80048; 82570; 84156

== ENCOUNTER → 2021-06-24 15:27 | Outpatient (CLI) | payer BC, SELFPAY ==
--- NOTE | 2021-06-24 15:29 | DI.RAD.S_ITS ---
PROCEDURE: XR FOOT RT MIN 3V INDICATIONS: RT TOE PAIN TECHNIQUE: 3 views of the foot were acquired. COMPARISON: [facility], , FOOT 3V LEFT, 05/01/2014, 8:24. FINDINGS: Bones: No fractures or dislocations. No suspicious bony lesions. Plantar calcaneal enthesophyte. An accessory navicular is seen. Hallux valgus deformity. Joint space narrowing with osteophytosis of the 1st tarsometatarsal articulation. Soft tissues: No tibiotalar joint effusion. Achilles tendon appears normal. IMPRESSION: 1. No acute osseous abnormality. 2. Joint space narrowing with osteophytosis about the 1st tarsometatarsal articulation. 3. Hallux valgus deformity. 4. Accessory navicular. Dictated by: Anton Metcalf M.D. on 06/24/2021 at 16:05 Approved by: Anton Metcalf M.D. on 06/24/2021 at 16:08
== END ==
PROVIDERS: Referring Provider Nurse Practitioner Family; Visit Provider Nurse Practitioner Family
DX: M79.671 Pain in right foot (principal); M20.11 Hallux valgus (acquired), right foot; M77.31 Calcaneal spur, right foot
CPT/HCPCS: 73630

== ENCOUNTER → 2021-09-30 07:30 | Outpatient (CLI) | payer BC, SELFPAY ==
[2021-09-30 07:52] LABS: Hematocrit 38.1 % (36-46); Hemoglobin 12.9 g/dL (12.0-16.0)
[2021-09-30 08:08] LABS: BUN Creatinine Ratio 24.1 (6-22); Blood Urea Nitrogen 21 mg/dL (7-17); Carbon Dioxide 29 mmol/L (22-32); Chloride 104 mmol/L (98-107); Estimated Glomerular Filt Rate > 60.0 mL/min (>60); Glucose 95 mg/dL (80-110); Potassium 4.7 mmol/L (3.4-5.1); Sodium 137 mmol/L (137-145)
[2021-09-30 08:09] LABS: HEMOLYSIS 114 (0-50)
[2021-09-30 08:19] LABS: Protein (Total) Urine Random 12 mg/dL (0-12); Protein Creatinine Ratio Urine 0.09 GRAM/24H
[2021-10-01 05:17] LABS: Parathyroid Hormone Int 27 pg/mL (15-65)
== END ==
PROVIDERS: PCP Naturopath; Referring Provider Student in an Organized Health Care Education/Training Program; Visit Provider Student in an Organized Health Care Education/Training Program
DX: N05.9 Unspecified nephritic syndrome with unspecified morphologic changes (principal); D64.9 Anemia, unspecified; R80.9 Proteinuria, unspecified; N25.81 Secondary hyperparathyroidism of renal origin
CPT/HCPCS: 36415; 80048; 82570; 83970; 84156; 85014; 85018

== ENCOUNTER → 2022-01-06 07:04 | Outpatient (CLI) | payer BC, SELFPAY ==
[2022-01-06 08:02] LABS: Add Manual Diff / Slide Review NO; Basophils Absolute Auto 100 /uL (0-100); Basophils Percent Auto 1.1 % (0-2); Eosinophils Absolute Auto 200 /uL (0-450); Hematocrit 36.9 % (36-46); Hemoglobin 12.8 g/dL (12.0-16.0); Lymphocytes Absolute Auto 1800 /uL (1100-4500); Lymphocytes Percent Auto 20.7 % (25-40); Mean Corpuscular HGB Conc 34.6 % (30-36); Mean Corpuscular Volume 86.7 fL (80-100); Monocytes Absolute Auto 800 /uL (0-900); Monocytes Percent Auto 8.9 % (3-14); Neutrophils Absolute Auto 5900 /uL (1500-7000); Neutrophils Percent Auto 67.3 % (50-75); Platelet Count 399 X10^3/uL (150-400); Red Blood Cell Count 4.26 X10^6/uL (4.0-5.2); Red Cell Distribution Width 13.9 % (11.6-14.8); White Blood Cell Count 8.7 X10^3/uL (4.5-11.0)
[2022-01-06 08:16] LABS: Alanine Aminotransferase 20 IU/L (<35); Albumin 4.5 g/dL (3.5-5.0); Albumin Globulin Ratio 1.3 (1.0-2.8); Alkaline Phosphatase 90 U/L (38-126); Aspartate Aminotransferase 29 IU/L (14-36); BUN Creatinine Ratio 21.1 (6-22); Bilirubin Total 0.4 mg/dL (0.2-1.3); Blood Urea Nitrogen 16 mg/dL (7-17); C-Reactive Protein Quant 1.9 mg/dL (<1.0); Carbon Dioxide 28 mmol/L (22-32); Chloride 104 mmol/L (98-107); Cholesterol 233 mg/dL (140-199); Estimated Glomerular Filt Rate > 60 mL/min (>60); Globulin 3.5 g/dL (1.7-4.1); Glucose 102 mg/dL (80-110); HDL Cholesterol 66 mg/dL (40-60); HEMOLYSIS < 15 (0-50); LDL Cholesterol Calculated 143 mg/dL (<100); Potassium 3.9 mmol/L (3.4-5.1); Sodium 138 mmol/L (137-145); Triglycerides 119 mg/dL (35-150)
[2022-01-06 08:31] LABS: Vitamin D 25 Hydroxy (D3) 68.5 ng/mL (30.0-100.0)
[2022-01-06 08:47] LABS: Thyroid Stimulating Hormone 2.59 uIU/mL (0.47-4.68)
[2022-01-06 08:49] LABS: Ferritin 83 ng/mL (11-264)
[2022-01-06 09:20] LABS: Folate > 20.0 ng/mL (2.76-20.0); Vitamin B12 > 1000 pg/mL (239-931)
== END ==
PROVIDERS: PCP Naturopath; Referring Provider Naturopath; Visit Provider Naturopath
DX: N18.2 Chronic kidney disease, stage 2 (mild) (principal); R31.9 Hematuria, unspecified; D64.9 Anemia, unspecified
CPT/HCPCS: 36415; 80053; 80061; 82306; 82607; 82728; 82746; 84443; 85025; 86140

== ENCOUNTER 2022-02-05 07:06 | Emergency (ER) | payer BC, SELFPAY ==
[2022-02-05] VITALS (11 sets, daily range): BP systolic 120–151; BP diastolic 68–81; PULSE 66–91; RESP 10–24; TEMP 36.7; O2SAT 98–100; BMI 36.3
--- NOTE | 2022-02-05 07:18 | DI.RAD.S_ITS ---
PROCEDURE: XR CHEST 1V INDICATIONS: chest pain TECHNIQUE: One view of the chest was acquired. COMPARISON: [facility], , XR CHEST 1V, 02/09/2020, 19:13. [facility], , CHEST 2 VIEW, 07/04/2017, 11:25. FINDINGS: Surgical changes and devices: None. Lungs and pleura: Lungs are clear. No pleural effusions or pneumothorax. Mediastinum: Mediastinal contours appear normal. Heart size is normal. Bones and chest wall: No suspicious bony lesions. Overlying soft tissues appear unremarkable. IMPRESSION: No acute cardiopulmonary abnormality. Dictated by: Heriberto Bella M.D. on 02/05/2022 at 8:09 Approved by: Heriberto Bella M.D. on 02/05/2022 at 8:09
[2022-02-05 07:38] LABS: Add Manual Diff / Slide Review NO; Basophils Absolute Auto 100 /uL (0-100); Basophils Percent Auto 1.1 % (0-2); Eosinophils Absolute Auto 200 /uL (0-450); Eosinophils Percent Auto 2.1 % (2-4); Hematocrit 36.4 % (36-46); Hemoglobin 12.4 g/dL (12.0-16.0); Lymphocytes Absolute Auto 2000 /uL (1100-4500); Lymphocytes Percent Auto 23.4 % (25-40); Mean Corpuscular Hemoglobin 29.7 PG (26-34); Mean Corpuscular Volume 87.3 fL (80-100); Monocytes Absolute Auto 800 /uL (0-900); Monocytes Percent Auto 9.8 % (3-14); Neutrophils Absolute Auto 5500 /uL (1500-7000); Neutrophils Percent Auto 63.6 % (50-75); Platelet Count 366 X10^3/uL (150-400); Red Blood Cell Count 4.17 X10^6/uL (4.0-5.2); Red Cell Distribution Width 13.8 % (11.6-14.8); White Blood Cell Count 8.7 X10^3/uL (4.5-11.0)
--- NOTE | 2022-02-05 07:44 | ED_ITS ---
HPI - Chest Pain General Chief Complaint: Chest Pain Stated Complaint: chest pressure Time Seen by Provider: 02/05/22 07:44 Source: patient Mode of arrival: Family Vehicle Limitations: no limitations History of Present Illness HPI narrative: This is a 66-year-old female who developed left shoulder blade and chest p ressure on the left side intermittently yesterday and then consistently overnight and has been persistent. Patient states at this time it sort of left radiates to back through the left shoulder blade and a little bit arm with some tingling into her arm. She notes she has had some shortness of breath with exertion for some time but not having the chest pressure until yesterday. She feels like the shortness of breath is a little bit more intense than normal. Nothing seems to exacerbate or alleviate it. She has not actually tried much movement but has not appreciated anything. She also notes that her heart rate has been and down. The 125 is typically when she is exerting herself and not resting otherwise is normally 60-90. She has not had any syncope or lightheadedness. She denies any swelling, she has chronic cramping on and off in her extremities for years but nothing new, no redness or swelling she is appreciated. No fevers, cold cough or congestion. She gets night sweats pretty much every single night at 5:00 a.m. she starts last night he started at 2:00 a.m. and felt different. She denies any nausea or vomiting. No other GI or urinary symptoms. She has had chronic neck issues sees a chiropractor regularly for all impingement of the nerve. She is on lisinopril, vaginal insert for dryness as well as oral estrogen. She does take an Excedrin headache daily but no other anticoagulants. No prior surgeries. She states she is allergic to GERD medications they gave her migraines. No tobacco, 1 alcoholic drink weekly, no illicit. She states her father had lung and stomach cancer but no cardiac history, no pulmonary or embolic history. She is accompanied by her today. Related Data Home Medications Medication Instructions Recorded Confirmed MULTIMINERAL/MULTIVITAMIN (MINERAL 1 tab PO Q DAY ##0 06/28/12 09/15/21 COMPLEX) PANCRELIPASE (#ENZYMES) 1 tab PO Q DAY ##0 06/28/12 09/15/21 Bone-Up by [employer] 6 cap PO .QD 04/08/20 09/15/21 estrovera PO 06/03/20 09/15/21 lisinopril 2.5 mg tablet 2.5 mg PO DAILY 06/24/21 09/15/21 Previous Rx's Medication Instructions Recorded estradiol 10 mcg vaginal tablet 10 mcg vaginal 2XW vaginal atrophy 02/09/18 (Yuvafem) #30 tabs tramadol 50 mg tablet 50 mg PO QID PRN pain #10 tabs 02/05/22 Allergies Allergy/AdvReac Type Severity Reaction Status Date / Time Proton Pump Inhibitors Allergy Mild MIGRAINES Verified 09/15/21 08:32 [PROTON PUMP INHIBITORS] Review of Systems Review of Systems ROS Unobtainable: All systems reviewed & are unremarkable except as noted in HPI and below Patient History Medical History Arthritis Asthma FHx: migraine headaches GERD (gastroesophageal reflux disease) Microscopic hematuria Postmenopausal atrophic vaginitis Strain of gastrocnemius muscle Surgical History History of repair of hiatal hernia Status post knee surgery Family History Father Stomach cancer Lung cancer Social History household members: spouse Smoking Status: Never smoker Smoking Status: Never smoker alcohol intake frequency: 0-2 drinks per day Substance Use Type: does not use Exam Narrative Exam Narrative: GENERAL: Alert and oriented x three, female in mild distress. HEENT: Head normocephalic, atraumatic, EOMI, pupils reactive, face symmetric, moist mucous membranes NECK: Supple, full range of motion, patient does have a negative Spurling's with rotation the head to the left and extension backwards with compression down the left arm. CARDIOVASCULAR: Regular rate and rhythm without murmurs, rubs or gallops. No reproducible chest discomfort. No rash or skin changes. RESPIRATORY: Breath sounds equal bilaterally, no wheezes rales or rhonchi. No tachypnea or accessory muscle use. ABDOMEN: Soft, nontender. Normoactive bowel sounds all 4 quadrants. No guarding or rebound, rigidity, no mass : No CVA tenderness EXTREMITIES: Normal range of motion, no clubbing or edema. Neurovascularly intact NEUROLOGICAL: Cranial nerves II through XII grossly intact. Moving all extremities SKIN: Warm, dry, no petechiae, no rashes or lesions. Initial Vital Signs Initial Vital Signs: Vital Signs Pulse Rate 91 H 02/05/22 07:12 Respiratory Rate 24 02/05/22 07:12 Pulse Oximetry 98 02/05/22 07:12 Scores HEART Score Heart Score history: Moderately Suspicious Heart Score EKG: Normal Heart Score Age: > or = 65 years old Heart Score risk factors: 1-2 risk factors Heart Score troponin: < or = to normal limit Heart Score Total: 4 PERC Score Age greater than or equal to 50 years: Yes Heart rate greater than or equal to 100 bpm: No Room Air O2 Sat less than 95%: No Unilateral leg swelling: No Recent trauma or surgery: No Hemoptysis: No Prior PE or DVT: No Hormone Use: Yes Total PERC Score: 2 Course Orders Ordered: ED Orders 02/05/22 07:18 XR chest 1V Stat EKG-12 Lead Stat 02/05/22 07:23 Complete Blood Count AUTO DIFF Stat Comprehensive Metabolic Panel Stat Lipase Stat Magnesium Stat Troponin & CK Cardiac Panel Stat 02/05/22 08:09 D Dimer Stat 02/05/22 08:42 CT angio chest PE protocol Stat 02/05/22 09:23 Trop I [Troponin I] Stat Reevaluation(s) Reevaluation #1: Patient still has some chest pressure described as mild in defers anything. Reviewed her findings so far her D-dimer is elevated even with age adjustment so CT PE was ordered. The rest of her workup so far shows no other acute changes. Time: 08:54 Vital Signs Vital signs: Vital Signs - 8 hr 02/05/22 07:19 02/05/22 07:12 02/05/22 07:13 Temperature 98.0 F Pulse Rate 89 91 H Respiratory Rate 18 24 Blood Pressure 151/80 H 151/80 H Pulse Oximetry 98 98 Oxygen Delivery Method Room Air 02/05/22 07:13 02/05/22 07:30 02/05/22 07:30 Temperature Pulse Rate 88 77 Respiratory Rate 20 12 Blood Pressure 129/78 Pulse Oximetry 98 99 Oxygen Delivery Method 02/05/22 08:00 02/05/22 08:00 Temperature Pulse Rate 79 Respiratory Rate 16 Blood Pressure 143/81 H Pulse Oximetry 99 Oxygen Delivery Method MDM - Chest Pain Lab Data Result diagrams: 02/05/22 07:23 02/05/22 07:23 Labs: Lab Results 02/05/22 02/05/22 02/05/22 Range/Units 07:23 07:23 08:09 WBC 8.7 (4.5-11.0) X10^3/uL RBC 4.17 (4.0-5.2) X10^6/uL Hgb 12.4 (12.0-16.0) g/dL Hct 36.4 (36-46) % MCV 87.3 (80-100) fL MCH 29.7 (26-34) PG MCHC 34.0 (30-36) % RDW 13.8 (11.6-14.8) % Plt Count 366 (150-400) X10^3/uL Neut % (Auto) 63.6 (50-75) % Lymph % (Auto) 23.4 L (25-40) % Mcintosh % (Auto) 9.8 (3-14) % Eos % (Auto) 2.1 (2-4) % Baso % (Auto) 1.1 (0-2) % Neut # (Auto) 5500 (8089-4416) /uL Lymph # (Auto) 2000 (9790-0274) /uL Mcintosh # (Auto) 800 (0-900) /uL Eos # (Auto) 200 (0-450) /uL Baso # (Auto) 100 (0-100) /uL D-Dimer 394 H (<230) ng/mL Sodium 139 (137-145) mmol/L Potassium 3.8 (3.4-5.1) mmol/L Chloride 103 (98-107) mmol/L Carbon Dioxide 28 (22-32) mmol/L BUN 21 H (7-17) mg/dL Creatinine 0.7 (0.52-1.04) mg/dL Estimated GFR > 60 (>60) mL/min BUN/Creatinine Ratio 30.0 H (6-22) Glucose 100 (80-110) mg/dL Calcium 9.0 (8.4-10.2) mg/dL Magnesium 2.2 (1.6-2.3) mg/dL Total Bilirubin 0.5 (0.2-1.3) mg/dL AST 27 (14-36) IU/L ALT 18 (<35) IU/L Alkaline Phosphatase 84 (38-126) U/L Total Creatine Kinase 96 (30-135) U/L CK-MB (CK-2) TNP CK-MB (CK-2) Rel Index TNP Troponin I < 0.012 (0.01-0.034) ng/mL Total Protein 7.7 (6.3-8.2) g/dL Albumin 4.3 (3.5-5.0) g/dL Globulin 3.4 (1.7-4.1) g/dL Albumin/Globulin Ratio 1.3 (1.0-2.8) Lipase 105 (23-300) U/L 02/05/22 Range/Units 09:29 WBC (4.5-11.0) X10^3/uL RBC (4.0-5.2) X10^6/uL Hgb (12.0-16.0) g/dL Hct (36-46) % MCV (80-100) fL MCH (26-34) PG MCHC (30-36) % RDW (11.6-14.8) % Plt Count (150-400) X10^3/uL Neut % (Auto) (50-75) % Lymph % (Auto) (25-40) % Mcintosh % (Auto) (3-14) % Eos % (Auto) (2-4) % Baso % (Auto) (0-2) % Neut # (Auto) (5445-9915) /uL Lymph # (Auto) (5848-0600) /uL Mcintosh # (Auto) (0-900) /uL Eos # (Auto) (0-450) /uL Baso # (Auto) (0-100) /uL D-Dimer (<230) ng/mL Sodium (137-145) mmol/L Potassium (3.4-5.1) mmol/L Chloride (98-107) mmol/L Carbon Dioxide (22-32) mmol/L BUN (7-17) mg/dL Creatinine (0.52-1.04) mg/dL Estimated GFR (>60) mL/min BUN/Creatinine Ratio (6-22) Glucose (80-110) mg/dL Calcium (8.4-10.2) mg/dL Magnesium (1.6-2.3) mg/dL Total Bilirubin (0.2-1.3) mg/dL AST (14-36) IU/L ALT (<35) IU/L Alkaline Phosphatase (38-126) U/L Total Creatine Kinase (30-135) U/L CK-MB (CK-2) CK-MB (CK-2) Rel Index Troponin I < 0.012 (0.01-0.034) ng/mL Total Protein (6.3-8.2) g/dL Albumin (3.5-5.0) g/dL Globulin (1.7-4.1) g/dL Albumin/Globulin Ratio (1.0-2.8) Lipase (23-300) U/L ECG Data Attestation: I personally reviewed and interpreted this ECG as follows: Interpretation: Sinus rhythm, rate of 77 CO 168 QRS 80 QTC 384. No acute ST elevation depression noted. Patient has prior from 02/09/2020 which appears similar. She does have a Q-wave in 3 and AVF. EKG to sinus rhythm rate of 66 CO 176 QRS is 72 and QTC of 387. No acute ST elevation depression noted. MDM Narrative Medical decision making narrative: This is a 66-year-old female with of noted chest pain radiating to her shoulder blade with tingling down her arm. She does have risk factors in term of hypertension, BMI of 36 from cardiac risk factor, she is on oral estrogen as well. Of patient's symptoms are somewhat reproducible with Spurling's test. Patient's workup includes EKG which has not shown acute changes, CBC, CMP, troponin x2 and D-dimer is elevated even when age adjusted. CT PE was performed this patient does have risk factors. Troponin and EKG repeated 2 hours from initial with no acute change. After discussion and examination patient does have positive and I suspect there may be a component of pain secondary to this she does after further discussion states that she has had chronic issues with pain sometimes tingling down the arm. Patient symptoms have been persistent for more than 12 hours with negative troponin and no acute EKG changes making ACS/NSTEMI STEMI much less likely. PE has been ruled out. Plan for discharge home follow-up outpatient but discussed she should probably follow up also for evaluation with stress testing. Discharge Plan Departure Patient Disposition: Home Clinical Impression: Left chest pressure, Arm paresthesia, left Instructions: DI for Atypical Chest Pain Activity Restrictions/Additional Instructions: Follow up with your physician for recheck. I suspect your symptoms may be somewhat related to your known nerve impingement in your neck but would be appropriate to follow up and have stress testing you do have some risk factors for cardiac causes. You can continue home medications as prescribed. You may take 1-2 tablets of tramadol as every 6 hours as needed for headaches and pain. This medication can make you sleepy do not drive, perform hazardous activities or make any major decisions while taking it. This medication will make you constipated please take a stool softener once to twice daily until stools are soft and regular. Prescription sent to [facility] in [place]. Please return for worsening symptoms, passing out, fevers, worsening shortness of breath, persistent vomiting, new swelling of your extremities, or other new concerning symptoms. Prescriptions: New tramadol 50 mg tablet 50 mg PO QID PRN (Reason: pain) Qty: 10 0RF No Action lisinopril 2.5 mg tablet 2.5 mg PO DAILY MULTIMINERAL/MULTIVITAMIN (MINERAL COMPLEX) 1 tab PO Q DAY Qty: 0 PANCRELIPASE (#ENZYMES) 1 tab PO Q DAY Qty: 0 estradiol [Yuvafem] 10 mcg tablet 10 mcg VAG 2XW Qty: 30 8RF Bone-Up by [employer] 6 cap PO .QD estrovera PO Referrals: Amina Allen ND [Primary Care Provider] - Visit Report Forms: Patient Portal/API
[2022-02-05 08:14] LABS: Chloride 103 mmol/L (98-107); Creatine Kinase 96 U/L (30-135); Potassium 3.8 mmol/L (3.4-5.1); Sodium 139 mmol/L (137-145); Troponin I < 0.012 ng/mL (0.01-0.034)
[2022-02-05 08:15] LABS: Bilirubin Total 0.5 mg/dL (0.2-1.3); Blood Urea Nitrogen 21 mg/dL (7-17); Carbon Dioxide 28 mmol/L (22-32); Estimated Glomerular Filt Rate > 60 mL/min (>60); Glucose 100 mg/dL (80-110); Magnesium 2.2 mg/dL (1.6-2.3)
[2022-02-05 08:16] LABS: Alanine Aminotransferase 18 IU/L (<35); Albumin 4.3 g/dL (3.5-5.0); Albumin Globulin Ratio 1.3 (1.0-2.8); Alkaline Phosphatase 84 U/L (38-126); Aspartate Aminotransferase 27 IU/L (14-36); Globulin 3.4 g/dL (1.7-4.1); Lipase 105 U/L (23-300); Total Protein 7.7 g/dL (6.3-8.2)
[2022-02-05 08:19] LABS: HEMOLYSIS < 15 (0-50)
[2022-02-05 08:31] LABS: D Dimer 394 ng/mL (<230)
--- NOTE | 2022-02-05 08:42 | DI.CT.S_ITS ---
PROCEDURE: CT ANGIO CHEST PE PROTOCOL INDICATIONS: left chest pain radiates to back, + estrogen, elevated dimer TECHNIQUE: After the administration of intravenous contrast, 2 mm thick sections acquired from the pulmonary apices to the posterior costophrenic angles. 3-dimensional maximum intensity projection (MIP) coronal and sagittal reformats were then acquired through the thorax. For radiation dose reduction, the following was used: automated exposure control, adjustment of mA and/or kV according to patient size. COMPARISON: [facility], CT, CT ABDOMEN PELVIS WO/W CON, 07/14/2020, 14:08. FINDINGS: Image quality: Excellent. Pulmonary arteries: Pulmonary arteries are normal in size, and demonstrate no intraluminal filling defects to suggest central pulmonary embolism. Lungs and pleura: Lungs are clear. No pleural effusions or pneumothorax. Central and peripheral airways are patent. Mediastinum: Heart size is normal, without pericardial effusion. No mediastinal or hilar adenopathy. Thoracic aorta is normal in caliber and enhancement. Esophagus is normal in caliber, with mild hiatal hernia. Bones and chest wall: No suspicious bony lesions. Ribs and thoracic spine appear intact throughout. Thyroid gland is unremarkable. No axillary or supraclavicular adenopathy. Abdomen: Unchanged left hepatic lobe cyst. Visualized upper abdominal solid organs appear normal in the early arterial phase of enhancement. IMPRESSION: No pulmonary embolism. Lungs are clear. Dictated by: Bekah Poon M.D. on 02/05/2022 at 9:05 Approved by: Bekah Poon M.D. on 02/05/2022 at 9:08
[2022-02-05 10:15] LABS: Troponin I < 0.012 ng/mL (0.01-0.034)
== END 2022-02-05 10:50 | disposition home or self-care (01) ==
PROVIDERS: Emergency Provider Emergency Medicine; PCP Naturopath
DX: R07.89 Other chest pain (principal); R20.2 Paresthesia of skin
CPT/HCPCS: 71045; 71275; 80053; 82550; 83690; 83735; 84484; 85025; 85379; 93005; 93010; 99283; 99284; Q9967

== ENCOUNTER → 2022-03-02 09:14 | Outpatient (CLI) | payer BC, SELFPAY ==
[2022-03-02 10:44] LABS: Hematocrit 37.4 % (36-46); Hemoglobin 12.7 g/dL (12.0-16.0)
[2022-03-02 11:00] LABS: BUN Creatinine Ratio 18.9 (6-22); Blood Urea Nitrogen 17 mg/dL (7-17); Calcium 9.2 mg/dL (8.4-10.2); Carbon Dioxide 25 mmol/L (22-32); Chloride 100 mmol/L (98-107); Estimated Glomerular Filt Rate > 60 mL/min (>60); Glucose 84 mg/dL (80-110); HEMOLYSIS < 15 (0-50); Potassium 4.2 mmol/L (3.4-5.1); Sodium 136 mmol/L (137-145)
[2022-03-02 11:03] LABS: Creatinine Urine Random 28.7 mg/dL; Protein (Total) Urine Random 12 mg/dL (0-12); Protein Creatinine Ratio Urine 0.41 GRAM/24H
[2022-03-03 07:39] LABS: Calcium 9.2 mg/dL (8.7-10.3); Parathyroid Hormone, Intact 30 pg/mL (15-65)
== END ==
PROVIDERS: PCP Naturopath; Referring Provider Student in an Organized Health Care Education/Training Program; Visit Provider Student in an Organized Health Care Education/Training Program
DX: N05.9 Unspecified nephritic syndrome with unspecified morphologic changes (principal); D64.9 Anemia, unspecified; R80.9 Proteinuria, unspecified; N25.81 Secondary hyperparathyroidism of renal origin
CPT/HCPCS: 36415; 80048; 82310; 82570; 83970; 84156; 85014; 85018

== ENCOUNTER → 2022-07-08 14:03 | Outpatient (CLI) | payer MEDICARE, SELFPAY ==
[2022-07-08 15:10] LABS: Appearance Urine UA CLEAR; Bilirubin Urine UA NEGATIVE (NEGATIVE); Color Urine UA YELLOW; Glucose Urine UA NEGATIVE (Negative); Ketones Urine UA NEGATIVE (NEGATIVE); Leukocyte Esterase Urine UA NEGATIVE (NEGATIVE); Nitrite Urine UA NEGATIVE (Negative); Occult Blood Urine UA 3+ (Negative); Protein Urine UA NEGATIVE (Negative); Specific Gravity Urine UA <=1.005 (1.000-1.035); Urobilinogen Urine UA 0.2 E.U./dL (0.2)
[2022-07-08 15:11] LABS: BUN Creatinine Ratio 16.3 (6-22); Blood Urea Nitrogen 14 mg/dL (7-17); Calcium 9.5 mg/dL (8.4-10.2); Carbon Dioxide 29 mmol/L (22-32); Chloride 97 mmol/L (98-107); Estimated Glomerular Filt Rate > 60 mL/min (>60); Glucose 102 mg/dL (80-110); HEMOLYSIS < 15 (0-50); Potassium 4.1 mmol/L (3.4-5.1); Sodium 136 mmol/L (137-145)
[2022-07-08 15:12] LABS: Bacteria Urine Occasional (0-1); Culture Indicated Urine Cult Not Indicated; RBC Urine 10-30/HPF (0-5/HPF); Squamous Epithelial Cell Urine 1-5 /HPF (0-5/HPF); WBC Urine 0-1/HPF (0-5/HPF)
[2022-07-08 19:19] LABS: Creatinine Urine Random 58.8 mg/dL; Protein (Total) Urine Random 13 mg/dL (0-12); Protein Creatinine Ratio Urine 0.22 GRAM/24H
== END ==
PROVIDERS: PCP Naturopath; Referring Provider Student in an Organized Health Care Education/Training Program; Visit Provider Student in an Organized Health Care Education/Training Program
DX: N05.9 Unspecified nephritic syndrome with unspecified morphologic changes (principal); N30.00 Acute cystitis without hematuria; R80.9 Proteinuria, unspecified
CPT/HCPCS: 36415; 80048; 81001; 82570; 84156

== ENCOUNTER → 2022-09-04 13:37 | Outpatient (CLI) | payer MEDICARE, BC, SELFPAY ==
[2022-09-04 14:41] LABS: COVID-19 CEPHEID 4-PLEX PCR Negative (Negative); Influenza A - CEPHEID Flu A NEGATIVE (NEGATIVE); Influenza B - CEPHEID Flu B NEGATIVE (NEGATIVE); Respiratory Syncytial Virus Negative (Negative)
== END ==
PROVIDERS: PCP Naturopath; Visit Provider Registered Nurse
DX: J06.9 Acute upper respiratory infection, unspecified (principal); Z20.822 Contact with and (suspected) exposure to COVID-19
CPT/HCPCS: 0241U

== ENCOUNTER → 2023-01-05 13:06 | Outpatient (CLI) | payer MEDICARE, OTHER, SELFPAY ==
[2023-01-05 13:51] LABS: Appearance Urine UA CLEAR; Bilirubin Urine UA NEGATIVE (NEGATIVE); Color Urine UA YELLOW; Glucose Urine UA NEGATIVE (Negative); Ketones Urine UA NEGATIVE (NEGATIVE); Leukocyte Esterase Urine UA NEGATIVE (NEGATIVE); Nitrite Urine UA NEGATIVE (Negative); Occult Blood Urine UA 3+ (Negative); Protein Urine UA NEGATIVE (Negative); Urobilinogen Urine UA 0.2 E.U./dL (0.2)
[2023-01-05 14:15] LABS: Bacteria Urine None Seen; Culture Indicated Urine Cult Not Indicated; RBC Urine 5-10/HPF (0-5/HPF); Squamous Epithelial Cell Urine 1-5 /HPF (0-5/HPF); WBC Urine None Seen (0-5/HPF)
[2023-01-05 14:22] LABS: Hematocrit 36.1 % (36-46); Hemoglobin 12.4 g/dL (12.0-16.0)
[2023-01-05 14:37] LABS: BUN Creatinine Ratio 23.5 (6-22); Blood Urea Nitrogen 19 mg/dL (7-17); Carbon Dioxide 26 mmol/L (22-32); Chloride 100 mmol/L (98-107); Estimated Glomerular Filt Rate > 60 mL/min (>60); Glucose 96 mg/dL (80-110); HEMOLYSIS < 15 (0-50); Potassium 3.8 mmol/L (3.4-5.1); Sodium 134 mmol/L (137-145)
[2023-01-05 16:06] LABS: Creatinine Urine Random 88.9 mg/dL; Protein (Total) Urine Random 10 mg/dL (0-12); Protein Creatinine Ratio Urine 0.11 GRAM/24H
== END ==
PROVIDERS: PCP Naturopath; Referring Provider Student in an Organized Health Care Education/Training Program; Visit Provider Student in an Organized Health Care Education/Training Program
DX: N05.9 Unspecified nephritic syndrome with unspecified morphologic changes (principal); N30.00 Acute cystitis without hematuria; R80.9 Proteinuria, unspecified; D64.9 Anemia, unspecified
CPT/HCPCS: 36415; 80048; 81001; 82570; 84156; 85014; 85018

== ENCOUNTER → 2023-08-16 13:04 | Outpatient (CLI) | payer MEDICARE, OTHER, SELFPAY ==
[2023-08-16 13:49] LABS: Influenza A - CEPHEID Flu A NEGATIVE (NEGATIVE); Influenza B - CEPHEID Flu B NEGATIVE (NEGATIVE); Respiratory Syncytial Virus Negative (Negative)
[2023-08-16 13:50] LABS: COVID-19 CEPHEID 4-PLEX PCR Negative (Negative)
== END ==
PROVIDERS: PCP Naturopath; Visit Provider Physician Assistant
DX: R05.1 Acute cough (principal)
CPT/HCPCS: 0241U

== ENCOUNTER → 2024-03-09 07:56 | Outpatient (CLI) | payer MEDICARE, OTHER, SELFPAY ==
[2024-03-09 08:53] LABS: Appearance Urine UA CLEAR; Bilirubin Urine UA NEGATIVE (NEGATIVE); Color Urine UA YELLOW; Glucose Urine UA NEGATIVE (Negative); Ketones Urine UA NEGATIVE (NEGATIVE); Leukocyte Esterase Urine UA NEGATIVE (NEGATIVE); Nitrite Urine UA NEGATIVE (Negative); Occult Blood Urine UA 2+ (Negative); Protein Urine UA NEGATIVE (Negative); Specific Gravity Urine UA <=1.005 (1.000-1.035); Urobilinogen Urine UA 0.2 E.U./dL (0.2)
[2024-03-09 09:00] LABS: Add Manual Diff / Slide Review NO; Basophils Absolute Auto 100 /uL (0-100); Basophils Percent Auto 0.9 % (0-2); Eosinophils Absolute Auto 100 /uL (0-450); Eosinophils Percent Auto 1.4 % (2-4); Hematocrit 36.7 % (36-46); Hemoglobin 12.4 g/dL (12.0-16.0); Lymphocytes Absolute Auto 2200 /uL (1100-4500); Mean Corpuscular Volume 88.4 fL (80-100); Monocytes Absolute Auto 800 /uL (0-900); Monocytes Percent Auto 10.1 % (3-14); Neutrophils Absolute Auto 4900 /uL (1500-7000); Neutrophils Percent Auto 60.6 % (50-75); Platelet Count 414 X10^3/uL (150-400); Red Blood Cell Count 4.15 X10^6/uL (4.0-5.2)
[2024-03-09 09:05] LABS: Bacteria Urine None Seen; Culture Indicated Urine Cult Not Indicated; RBC Urine 1-5/HPF (0-5/HPF); Squamous Epithelial Cell Urine 1-5 /HPF (0-5/HPF); Urine Volume 10mL (spun); WBC Urine None Seen (0-5/HPF)
[2024-03-09 09:13] LABS: HEMOLYSIS < 15 (0-50); Iron 82 ug/dL (37-170)
[2024-03-09 09:15] LABS: Protein (Total) Urine Random 14 mg/dL (0-12)
[2024-03-09 09:16] LABS: Cholesterol 250 mg/dL (140-199); HDL Cholesterol 81 mg/dL (40-60); LDL Cholesterol Calculated 145 mg/dL (<100); Triglycerides 120 mg/dL (35-150)
[2024-03-09 09:25] LABS: BUN Creatinine Ratio 20.8 (6-22); Blood Urea Nitrogen 16 mg/dL (7-17); Carbon Dioxide 23 mmol/L (22-32); Chloride 102 mmol/L (98-107); Estimated Glomerular Filt Rate > 60 mL/min (>60); Glucose 92 mg/dL (80-110); HEMOLYSIS < 15 (0-50); Potassium 4.3 mmol/L (3.4-5.1); Sodium 134 mmol/L (137-145)
[2024-03-09 09:26] LABS: Percent Iron Saturation 30 % (15-50); Total Iron Binding Capacity 275 ug/dL (265-497); Transferrin 235 mg/dL (206-381)
[2024-03-09 09:42] LABS: Creatinine Urine Random 9.34 mg/dL; Protein Creatinine Ratio Urine 1.49 GRAM/24H
[2024-03-09 10:04] LABS: Vitamin B12 940 pg/mL (239-931)
[2024-03-09 14:36] LABS: Hemoglobin A1C% w Est Avg Glu 5.7 % (4.0-6.0)
[2024-03-11 11:36] LABS: Parathyroid Hormone Int 43 pg/mL (15-65)
== END ==
LOC: LAB 07:59
PROVIDERS: PCP Family Medicine; Referring Provider Student in an Organized Health Care Education/Training Program; Visit Provider Family Medicine
DX: Z00.00 Encounter for general adult medical examination without abnormal findings (principal); N05.9 Unspecified nephritic syndrome with unspecified morphologic changes; E11.9 Type 2 diabetes mellitus without complications; N25.81 Secondary hyperparathyroidism of renal origin; R00.0 Tachycardia, unspecified; D70.9 Neutropenia, unspecified; D63.1 Anemia in chronic kidney disease; N30.00 Acute cystitis without hematuria; R80.9 Proteinuria, unspecified; Z68.33 Body mass index [BMI] 33.0-33.9, adult; G62.9 Polyneuropathy, unspecified; R00.2 Palpitations; R25.2 Cramp and spasm
CPT/HCPCS: 36415; 80048; 80061; 81001; 82570; 82607; 83036; 83540; 83550; 83735; 83970; 84156; 84443; 85025

== ENCOUNTER → 2024-03-19 09:42 | Outpatient (CLI) | payer MEDICARE, OTHER, SELFPAY ==
--- NOTE | 2024-03-19 09:42 | DI.RAD.S_ITS ---
PROCEDURE: XR DEXA AXIAL SKELETON INDICATIONS: Osteopenia COMPARISON: [facility], HALLIE, XR DEXA AXIAL SKELETON, 03/28/2020, 10:09. [facility], CR, DEXA AXIAL SKELETON, 04/21/2016, 14:32. FINDINGS: Lumbar Spine: Bone mineral density 0.814 g/cm2, T score -2.1, previously -1.6. Left Hip: Bone mineral density 0.895 g/cm2, T score -0.4, previously -0.1. Left Femoral Neck: Bone mineral density 0.777 g/cm2, T score -0.6, previously -0.3. Right Hip: Bone mineral density 0.927 g/cm2, T score -0.1, previously 0.2. Right Femoral Neck: Bone mineral density 0.791 g/cm2, T score -0.5, previously -0.3. Fracture Risk Calculation (when applicable): 10-year fracture risk of a major osteoporotic fracture 7.5 percent and of a hip fracture 12 percent. (T score greater or equal to -1.0 to: NORMAL) (T score from -1.1 to -2.4: OSTEOPENIA) (T score less than or equal to -2.5: OSTEOPOROSIS) IMPRESSION: Osteopenia. Follow-up guidelines as follows: Osteoporosis: Consider a repeat DEXA and Vertebral Fracture Assessment (VFA) exam in 2 years or sooner if medically necessary, to reassess this patient's status. Osteopenia: Consider a repeat DEXA in 2-3 years to reassess this patient's status, or if there is a new clinical indication. Normal: Consider a repeat DEXA in 5 years or sooner, or if there is a new clinical indication. All treatment decisions require clinical judgment and consideration of individual patient factors, including patient preferences, comorbidities, previous drug use, risk factors not captured in the FRAX model (e.g., frailty, falls, vitamin D deficiency, increased bone turnover, interval significant decline in bone density ) and possible under- or over-estimation of fracture risk by FRAX. In addition, the NOF Guide recommends that FDA-approved medical therapies be considered in postmenopausal women and men age >= 50 years with a: * Hip or vertebral (clinical or morphometric) fracture * T-score of <=-2.5 at the spine or hip * Ten-year fracture probability by FRAX of >= 3% for hip fracture or >=20% for major osteoporotic fracture. People with diagnosed cases of osteoporosis or at high risk for fracture should have regular bone mineral density tests. For patients eligible for Medicare, routine testing is allowed once every 2 years. The testing frequency can be increased to one year for patients who have rapidly progressing disease, those who are receiving or discontinuing medical therapy to restore bone mass, or have additional risk factors. Dictated by: Trevor Sanchez M.D. on 03/19/2024 at 11:53 Approved by: Trevor Sanchez M.D. on 03/19/2024 at 11:55
== END ==
PROVIDERS: PCP Family Medicine; Referring Provider Family Medicine; Visit Provider Family Medicine
DX: M85.88 Other specified disorders of bone density and structure, other site (principal); Z78.0 Asymptomatic menopausal state
CPT/HCPCS: 77080

== ENCOUNTER → 2024-03-22 15:07 | Outpatient (CLI) | payer MEDICARE, OTHER, SELFPAY | LOC: CAR 15:08 | PROVIDERS: PCP Family Medicine; Referring Provider Family Medicine; Visit Provider Family Medicine | DX: R00.2 Palpitations (principal); I48.91 Unspecified atrial fibrillation; I48.92 Unspecified atrial flutter | CPT/HCPCS: 93242 ==

== ENCOUNTER → 2024-04-20 11:02 | Outpatient (CLI) | payer MEDICARE, OTHER, SELFPAY ==
[2024-04-20 13:23] LABS: BUN Creatinine Ratio 17.8 (6-22); Blood Urea Nitrogen 19 mg/dL (7-17); Calcium 9.1 mg/dL (8.4-10.2); Carbon Dioxide 27 mmol/L (22-32); Chloride 100 mmol/L (98-107); Estimated Glomerular Filt Rate 57 mL/min (>60); Glucose 91 mg/dL (80-110); HEMOLYSIS < 15 (0-50); Potassium 4.5 mmol/L (3.4-5.1); Sodium 135 mmol/L (137-145)
[2024-04-20 13:35] LABS: Creatinine Urine Random 52.38 mg/dL; Protein (Total) Urine Random 9 mg/dL (0-12); Protein Creatinine Ratio Urine 0.17 GRAM/24H
== END ==
PROVIDERS: PCP Family Medicine; Referring Provider Student in an Organized Health Care Education/Training Program; Visit Provider Student in an Organized Health Care Education/Training Program
DX: N05.9 Unspecified nephritic syndrome with unspecified morphologic changes (principal); R80.9 Proteinuria, unspecified
CPT/HCPCS: 36415; 80048; 82570; 84156

== ENCOUNTER → 2024-06-21 10:32 | Outpatient (CLI) | payer MEDICARE, OTHER, SELFPAY ==
[2024-06-21 11:13] LABS: Hematocrit 39.1 % (36-46); Hemoglobin 12.7 g/dL (12.0-16.0)
[2024-06-21 11:39] LABS: BUN Creatinine Ratio 25.3 (6-22); Blood Urea Nitrogen 21 mg/dL (7-17); Carbon Dioxide 27 mmol/L (22-32); Chloride 103 mmol/L (98-107); Estimated Glomerular Filt Rate > 60 mL/min (>60); Glucose 89 mg/dL (80-110); HEMOLYSIS < 15 (0-50); Potassium 5.3 mmol/L (3.4-5.1); Sodium 139 mmol/L (137-145)
[2024-06-21 11:52] LABS: Creatinine Urine Random 6.93 mg/dL; Protein (Total) Urine Random 16 mg/dL (0-12)
[2024-06-24 07:09] LABS: Parathyroid Hormone Int 22 pg/mL (15-65)
== END ==
PROVIDERS: PCP Family Medicine; Referring Provider Student in an Organized Health Care Education/Training Program; Visit Provider Student in an Organized Health Care Education/Training Program
DX: D70.9 Neutropenia, unspecified (principal); N05.9 Unspecified nephritic syndrome with unspecified morphologic changes; D63.1 Anemia in chronic kidney disease; N25.81 Secondary hyperparathyroidism of renal origin; R80.8 Other proteinuria
CPT/HCPCS: 36415; 80048; 82570; 83970; 84156; 85014; 85018

== ENCOUNTER → 2024-06-25 09:18 | Outpatient (CLI) | payer MEDICARE, OTHER, SELFPAY ==
--- NOTE | 2024-06-25 09:21 | DI.RAD.S_ITS ---
PROCEDURE: XR HIP W PEL IF DONE RT 2V INDICATIONS: HIP,PAIN TECHNIQUE: AP pelvis with lateral view(s) of the right hip(s). COMPARISON: CT, CT KIDNEY URETER BLADDER (KUB), 04/02/2020, 8:14. FINDINGS: Bones: No fractures or dislocations. Pelvic ring appears intact. No suspicious bony lesions. Moderate left and mild right hip joint space narrowing with periarticular osteophyte formation. Degenerative disc and facet disease involves the inferior lumbar spine. Soft tissues: The visualized bowel gas pattern is normal. No suspicious soft tissue calcifications. 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 Dictated by: Hugo Peng RRA Interpreted: Jayce Wadsworth MD on 06/25/2024 at 10:55 Transcribed by: DORETHA on 06/25/2024 at 10:57 Approved by: Jyace Wadsworth M.D. on 06/25/2024 at 13:43
[2024-06-25 12:01] LABS: HEMOLYSIS < 15 (0-50); Potassium 3.9 mmol/L (3.4-5.1)
== END ==
PROVIDERS: PCP Family Medicine; Referring Provider Chiropractor; Visit Provider Chiropractor
DX: S73.191A Other sprain of right hip, initial encounter (principal); E87.5 Hyperkalemia; M16.0 Bilateral primary osteoarthritis of hip
CPT/HCPCS: 36415; 73502; 84132

== ENCOUNTER → 2024-07-02 15:50 | Outpatient (CLI) | payer MEDICARE, OTHER, SELFPAY ==
[2024-07-02 16:45] LABS: HEMOLYSIS < 15 (0-50); Potassium 4.3 mmol/L (3.4-5.1)
== END ==
PROVIDERS: PCP Family Medicine; Referring Provider Student in an Organized Health Care Education/Training Program; Visit Provider Student in an Organized Health Care Education/Training Program
DX: E87.5 Hyperkalemia (principal)
CPT/HCPCS: 36415; 84132

== ENCOUNTER → 2024-08-13 07:25 | Outpatient (CLI) | payer MEDICARE, OTHER, SELFPAY ==
[2024-08-13 08:25] LABS: Hematocrit 38.7 % (36-46); Hemoglobin 12.8 g/dL (12.0-16.0)
[2024-08-13 09:03] LABS: Blood Urea Nitrogen 18 mg/dL (7-17); Calcium 9.8 mg/dL (8.4-10.2); Carbon Dioxide 30 mmol/L (22-32); Chloride 101 mmol/L (98-107); Estimated Glomerular Filt Rate > 60 mL/min (>60); Glucose 70 mg/dL (80-110); HEMOLYSIS < 15 (0-50); Sodium 138 mmol/L (137-145)
[2024-08-13 09:57] LABS: Creatinine Urine Random 10.69 mg/dL; Protein (Total) Urine Random 17 mg/dL (0-12); Protein Creatinine Ratio Urine 1.59 GRAM/24H
[2024-08-14 11:16] LABS: Calcium 9.9 mg/dL (8.7-10.3); Parathyroid Hormone, Intact 32 pg/mL (15-65)
== END ==
LOC: LAB 07:26
PROVIDERS: PCP Family Medicine; Referring Provider Student in an Organized Health Care Education/Training Program; Visit Provider Student in an Organized Health Care Education/Training Program
DX: N05.9 Unspecified nephritic syndrome with unspecified morphologic changes (principal); D70.9 Neutropenia, unspecified; D63.1 Anemia in chronic kidney disease; N25.81 Secondary hyperparathyroidism of renal origin; R80.9 Proteinuria, unspecified
CPT/HCPCS: 36415; 80048; 82310; 82570; 83970; 84156; 85014; 85018

== ENCOUNTER → 2024-08-23 08:00 | Outpatient (CLI) | payer MEDICARE, OTHER, SELFPAY ==
[2024-08-23 08:49] LABS: HEMOLYSIS < 15 (0-50); Potassium 3.8 mmol/L (3.4-5.1)
== END ==
PROVIDERS: PCP Family Medicine; Referring Provider Student in an Organized Health Care Education/Training Program; Visit Provider Student in an Organized Health Care Education/Training Program
DX: E87.5 Hyperkalemia (principal)
CPT/HCPCS: 36415; 84132

== ENCOUNTER → 2024-11-01 08:28 | Outpatient (CLI) | payer MEDICARE, OTHER, SELFPAY ==
[2024-11-01 08:52] LABS: Hematocrit 40.5 % (36-46); Hemoglobin 13.6 g/dL (12.0-16.0)
[2024-11-01 09:14] LABS: Blood Urea Nitrogen 20 mg/dL (7-17); Calcium 9.9 mg/dL (8.4-10.2); Carbon Dioxide 29 mmol/L (22-32); Chloride 100 mmol/L (98-107); Estimated Glomerular Filt Rate > 60 mL/min (>60); Glucose 83 mg/dL (80-110); Sodium 138 mmol/L (137-145)
[2024-11-01 09:20] LABS: HEMOLYSIS 61 (0-50)
[2024-11-01 09:21] LABS: Potassium 5.5 mmol/L (3.4-5.1)
[2024-11-01 09:34] LABS: Creatinine Urine Random 9.51 mg/dL; Protein (Total) Urine Random 14 mg/dL (0-12); Protein Creatinine Ratio Urine 1.47 GRAM/24H
[2024-11-02 08:36] LABS: Parathyroid Hormone Int 35 pg/mL (15-65)
== END ==
PROVIDERS: PCP Family Medicine; Referring Provider Student in an Organized Health Care Education/Training Program; Visit Provider Student in an Organized Health Care Education/Training Program
DX: N05.9 Unspecified nephritic syndrome with unspecified morphologic changes (principal); D70.9 Neutropenia, unspecified; D63.1 Anemia in chronic kidney disease; N25.81 Secondary hyperparathyroidism of renal origin; R80.9 Proteinuria, unspecified
CPT/HCPCS: 36415; 80048; 82570; 83970; 84156; 85014; 85018

== ENCOUNTER → 2024-11-07 09:56 | Outpatient (CLI) | payer MEDICARE, OTHER, SELFPAY ==
--- NOTE | 2024-11-07 09:58 | DI.RAD.S_ITS ---
PROCEDURE: XR FOOT LT MIN 3V INDICATIONS: Twisted ankle TECHNIQUE: 3 views of the foot were acquired. COMPARISON: [facility], CR, FOOT 3V LEFT, 05/01/2014, 8:24. [facility], CR, XR FOOT RT MIN 3V, 06/24/2021, 15:34. FINDINGS: Bones: No fractures or dislocations. Os navicularis redemonstrated. No suspicious bony lesions. Moderate hallux valgus metatarsus prima varus alignment and medial bunion. 1 cm well corticated calcific density medial and posterior to the navicular may represent os navicularis accessory ossicle versus remote fracture or other calcification. Moderate 1st MTP and mild diffuse interphalangeal joint space narrowing with periarticular osteophyte formation. Moderate 1st TMT joint space narrowing with dorsal osteophytosis. Retrocalcaneal plantar spurring. Soft tissues: No tibiotalar joint effusion. Achilles tendon appears normal. IMPRESSION: 1. No acute bony abnormality. 2. Moderate hallux valgus alignment and medial bunion. 3. Midfoot and forefoot joint degeneration. 4. Calcaneal enthesopathy. Dictated by: Hugo Peng [facility] Interpreted: Rajeev Mancini MD on 11/07/2024 at 10:36 Transcribed by: FRANCOISE on 11/07/2024 at 10:39 Approved by: Rajeev Mancini M.D. on 11/15/2024 at 8:54
--- NOTE | 2024-11-07 09:58 | DI.RAD.S_ITS ---
PROCEDURE: XR ANKLE LT MIN 3V INDICATIONS: Twisted ankle TECHNIQUE: 3 views of the ankle were acquired. COMPARISON: [facility], CR, XR TIBIA FIBULA LT 2V, 11/07/2024, 9:56. [facility], CR, XR FOOT LT MIN 3V, 11/07/2024, 9:56. FINDINGS: Mild diffuse circumferential soft tissue swelling surrounding the left ankle predominantly laterally. Moderate degenerative changes at the tibiotalar, talonavicular, calcaneocuboid joint. 8 mm inferior and 6 mm posterior calcaneal enthesophyte calcifications. Bones: No fractures or dislocations. Ankle mortise is normally aligned. No suspicious bony lesions. Soft tissues: No tibiotalar joint effusion. Achilles tendon appears normal. IMPRESSION: 1. Soft tissue swelling, without radiographic evidence of fracture or dislocation Degenerative changes. 2. Calcaneal enthesopathy. 3. If symptoms persist or worsen, or there is high clinical suspicion of ankle abnormality, MRI could be performed. Dictated by: Hugo Peng RR Interpreted: Rajeev Mancini MD on 11/07/2024 at 10:39 Transcribed by: FRANCOISE on 11/07/2024 at 10:45 Approved by: Rajeev Mancini M.D. on 11/15/2024 at 8:48
--- NOTE | 2024-11-07 09:58 | DI.RAD.S_ITS ---
PROCEDURE: XR TIBIA FIBULA LT 2V INDICATIONS: Twisted ankle TECHNIQUE: 2 views of the tibia and fibula were acquired. COMPARISON: [facility], CR, XR ANKLE LT MIN 3V, 11/07/2024, 9:56. FINDINGS: Moderate degenerative changes of left knee with moderate osteophytes. Irregularity of the left lateral tibial plateau is likely artifact related to positioning rather than tibial plateau fracture. No gross radiographic evidence of proximal fibular fracture. IMPRESSION: Degenerative changes as discussed above. No gross radiographic evidence of fracture or dislocation. If symptoms persist or worsen, or there is high clinical suspicion of left knee or tibia/fibula abnormality, CT or MRI could be performed. Dictated by: Hugo Peng RR Interpreted: Rajeev Mancini MD on 11/07/2024 at 10:35 Transcribed by: FRANCOISE on 11/07/2024 at 10:36 Approved by: Rajeev Mancini M.D. on 11/15/2024 at 9:05
== END ==
PROVIDERS: PCP Family Medicine; Referring Provider Nurse Practitioner Family; Visit Provider Nurse Practitioner Family
DX: S96.912A Strain of unspecified muscle and tendon at ankle and foot level, left foot, initial encounter (principal); M79.672 Pain in left foot; M20.12 Hallux valgus (acquired), left foot; M21.612 Bunion of left foot; M19.072 Primary osteoarthritis, left ankle and foot; M77.32 Calcaneal spur, left foot; M79.89 Other specified soft tissue disorders; X50.0XXA Overexertion from strenuous movement or load, initial encounter
CPT/HCPCS: 73590; 73610; 73630

== ENCOUNTER → 2024-11-09 07:28 | Outpatient (CLI) | payer MEDICARE, OTHER, SELFPAY ==
[2024-11-09 08:13] LABS: HEMOLYSIS < 15 (0-50); Potassium 4.9 mmol/L (3.4-5.1)
== END ==
LOC: LAB 07:29
PROVIDERS: PCP Family Medicine; Referring Provider Student in an Organized Health Care Education/Training Program; Visit Provider Student in an Organized Health Care Education/Training Program
DX: E87.5 Hyperkalemia (principal)
CPT/HCPCS: 36415; 84132

== ENCOUNTER → 2024-12-04 08:20 | Outpatient (CLI) | payer MEDICARE, OTHER, SELFPAY ==
[2024-12-04 14:44] LABS: Influenza A - CEPHEID Flu A NEGATIVE (NEGATIVE); Influenza B - CEPHEID Flu B NEGATIVE (NEGATIVE); Respiratory Syncytial Virus Negative (Negative)
[2024-12-04 14:48] LABS: COVID-19 CEPHEID 4-PLEX PCR Negative (Negative)
== END ==
LOC: LAB 08:56
PROVIDERS: PCP Family Medicine; Visit Provider Family Medicine
DX: J02.9 Acute pharyngitis, unspecified (principal); R05.9 Cough, unspecified
CPT/HCPCS: 0241U

== ENCOUNTER → 2025-02-15 07:28 | Outpatient (CLI) | payer MEDICARE, OTHER, SELFPAY ==
[2025-02-15 08:08] LABS: Hemoglobin 13.2 g/dL (12.0-16.0)
[2025-02-15 08:41] LABS: Creatinine Urine Random 15.41 mg/dL
[2025-02-15 08:41] LABS: BUN Creatinine Ratio 19.2 (6-22); Blood Urea Nitrogen 14 mg/dL (7-17); Calcium 9.8 mg/dL (8.4-10.2); Carbon Dioxide 27 mmol/L (22-32); Chloride 98 mmol/L (98-107); Estimated Glomerular Filt Rate > 60 mL/min (>60); Glucose 106 mg/dL (70-99); HEMOLYSIS < 15 (0-50); Sodium 133 mmol/L (137-145)
[2025-02-15 08:43] LABS: Potassium 5.4 mmol/L (3.4-5.1)
[2025-02-15 08:46] LABS: Microalbumin Urine Random 0.7 mg/dL (0-1.6)
== END ==
LOC: LAB 07:30
PROVIDERS: PCP Family Medicine; Referring Provider Student in an Organized Health Care Education/Training Program; Visit Provider Student in an Organized Health Care Education/Training Program
DX: D70.9 Neutropenia, unspecified (principal); D63.1 Anemia in chronic kidney disease; N05.9 Unspecified nephritic syndrome with unspecified morphologic changes; N25.81 Secondary hyperparathyroidism of renal origin
CPT/HCPCS: 36415; 80048; 82043; 82570; 83970; 85014; 85018

== ENCOUNTER 2025-07-06 06:58 | Emergency (ER) | payer MEDICARE, OTHER, SELFPAY ==
[2025-07-06 07:02] VITALS: BP 159/89; PULSE 82; RESP 14; TEMP 36.4; O2SAT 97; BMI 30.9
--- NOTE | 2025-07-06 07:28 | DI.RAD.S_ITS ---
PROCEDURE: XR WRIST RT MIN 3V INDICATIONS: wrist pain TECHNIQUE: 4 views of the wrist were acquired. COMPARISON: None. FINDINGS: Acute comminuted intra-articular impacted fracture of the distal radius. Chronic ossicle at the ulnar styloid. No dislocation. IMPRESSION: Distal radius fracture. Dictated by: Darien Courtney M.D. on 07/06/2025 at 8:52 Approved by: Darien Courtney M.D. on 07/06/2025 at 8:54
--- NOTE | 2025-07-06 07:28 | DI.RAD.S_ITS ---
PROCEDURE: XR FOREARM RT 2V INDICATIONS: arm injury TECHNIQUE: 2 views of the forearm were acquired. COMPARISON: None. FINDINGS: Distal radius fracture at the wrist better demonstrated on concurrently obtained wrist radiographs. No additional fracture. No dislocation. IMPRESSION: As above Dictated by: Darien Courtney M.D. on 07/06/2025 at 8:54 Approved by: Darien Courtney M.D. on 07/06/2025 at 8:55
--- NOTE | 2025-07-06 07:30 | ED_ITS ---
HPI - Extremity Injury (Upper) General Chief Complaint: Extremity Injury, Upper Stated Complaint: Broken arm Time Seen by Provider: 07/06/25 07:06 Source: patient Mode of arrival: Ambulatory History of Present Illness HPI narrative: 69-year-old female with no significant comorbidity presenting with a ground level fall onto an outstretched right wrist. This occurred just prior to arrival, she is complaining of pain in the right wrist and forearm. No swelling in the forearm. She is not anticoagulated. Related Data Home Medications ?Medication ?Instructions ?Recorded ?Confirmed MULTIMINERAL/MULTIVITAMIN (MINERAL 1 tab PO Q DAY ##0 06/28/12 07/06/25 COMPLEX) Previous Rx's ?Medication ?Instructions ?Recorded oxycodone 5 mg tablet 5 mg PO Q6H PRN pain #14 tab s 07/06/25 Allergies Allergy/AdvReac Type Severity Reaction Status Date / Time Proton Pump Inhibitors Allergy Mild MIGRAINES Verified 07/06/25 07:02 (PROTON PUMP INHIBITORS) Patient History Medical History (Updated 07/06/25 @ 08:47 by Stephan Machado MD) Ear pain Hematuria Strain of gastrocnemius muscle Postmenopausal atrophic vaginitis Microscopic hematuria FHx: migraine headaches GERD (gastroesophageal reflux disease) Asthma Arthritis Surgical History (Updated 01/23/25 @ 14:06 by Sofie Montgomery MA) [place] teeth removed Status post knee surgery History of repair of hiatal hernia Family History Father Stomach cancer Lung cancer Social History household members: spouse Smoking Status: Never smoker Smoking Status: Never smoker alcohol intake frequency: 0-2 drinks per day Exam Narrative Exam Narrative: Alert and appears to be in no distress. Head is atraumatic Right wrist has some swelling and possibly posterior deformity. She is tender with the right wrist and ulnar forearm. Radial pulses intact. Capillary refill in the fingers is intact. Normal right hand motor function and sensation Normal respiratory effort normal heart rate Initial Vital Signs Initial Vital Signs: Vital Signs Temperature 97.5 F L 07/06/25 07:02 Pulse Rate 82 07/06/25 07:02 Respiratory Rate 14 07/06/25 07:02 Blood Pressure 159/89 H 07/06/25 07:02 Pulse Oximetry 97 07/06/25 07:02 Oxygen Delivery Method Room Air 07/06/25 07:02 Procedures Orthopedic Splinting/Casting Injury #1: Time of procedure: 09:45 Side: right Upper Extremity Injury Location: wrist Upper Extremity Immobilizer: sugar tong splint Additional Comments: Orthoglass sugar-tong splint applied by nurse under my supervision. I reviewed the splint following application, neurovascular intact. Course Orders Ordered: ED Orders 07/06/25 07:28 XR forearm RT 2V Stat XR wrist RT min 3V Stat Discontinued Medications Oxycodone HCl (Oxycodone Ir 5 Mg Tablet) 5 mg PO NOW ONE Stop: 07/06/25 07:29 Last Admin: 07/06/25 08:30 Dose: 5 mg Documented By: RLS Consultations Consultation #1: Case was discussed with an imaging reviewed with Dr. Bowden-iman pinzon and follow up in the office Vital Signs Vital signs: Vital Signs - 8 hr 07/06/25 07:02 Temperature 97.5 F L Pulse Rate 82 Respiratory Rate 14 Blood Pressure 159/89 H Pulse Oximetry 97 Oxygen Delivery Method Room Air MDM - Extremity Injury (Upper) Imaging Data Extremity x-ray #1: My Impression: Right wrist x-ray shows comminuted fracture of the distal radius. Extremity x-ray #2: My Impression: Right radius ulna, no fracture of the radius and ulna wrist fracture is noted MDM Narrative Medical decision making narrative: 61-year-old female with a ground level fall resulting in a closed fracture of the right wrist. Neurovascular status is intact. No other injuries. Imaging was reviewed with Orthopedics the patient's wrist was splinted she will follow up with Orthopedics. I provided a prescription for a few oxycodone and recommended [id number] analgesics Discharge Plan Departure Patient Disposition: Home Clinical Impression: Closed fracture of right wrist Qualifiers: Encounter type: initial encounter Qualified Code(s): S62.101A - Fracture of unspecified carpal bone, right wrist, initial encounter for closed fracture Instructions: DI for Wrist Fracture Activity Restrictions/Additional Instructions: Today, we saw you for a fracture of your right wrist. Keep the splint on, elevate your wrist above the level of the heart when able. May use Tylenol 650- 1000 mg up to 3 or 4 times a day as needed for pain, may use ibuprofen 400 mg up to 3 times a day. I have sent a prescription for oxycodone but you can use as needed for pain not controlled by the above. If you are having severe pain in your wrist follow up in the emergency department. Follow up with Orthopedics in the coming week. Prescriptions: New oxycodone 5 mg tablet 5 mg PO Q6H PRN (Reason: pain) Qty: 14 0RF No Action MULTIMINERAL/MULTIVITAMIN (MINERAL COMPLEX) 1 tab PO Q DAY Qty: 0 Referrals: Bethany Bowden DO [Physician, Orthopedic Surgery] Referral Note: R wrist fracture Nita Fajardo DO [Primary Care Provider, Family Practice] Stand Alone Forms: Patient Portal/API
[2025-07-06 09:56] VITALS: BP 145/77; PULSE 78; RESP 16; O2SAT 99
[2025-07-06 09:58] VITALS: PULSE 70
== END 2025-07-06 10:00 | disposition home or self-care (01) ==
PROVIDERS: Emergency Provider Emergency Medicine; PCP Family Medicine
DX: S62.101A Fracture of unspecified carpal bone, right wrist, initial encounter for closed fracture (principal); W18.30XA Fall on same level, unspecified, initial encounter
CPT/HCPCS: 29125; 73090; 73110; 99283

== ENCOUNTER 2025-07-12 10:18 | Emergency (ER) | payer MEDICARE, OTHER, SELFPAY ==
[2025-07-12] VITALS (9 sets, daily range): BP systolic 111–168; BP diastolic 64–89; PULSE 68–101; RESP 12–24; TEMP 36.1; O2SAT 96–99; BMI 30.9
--- NOTE | 2025-07-12 10:37 | EKG_ITS ---
[address] [address] Test Date: 2025-07-12 Pat Name: Leeann Tena Department: Room: Gender: Female [employer]: LEIGH : 1955 Requested By: Order Number: [id number] Reading MD: Kt Zelaya MD Measurements Intervals Raymond Rate: 74 P: 12 OK: 148 QRS: 8 QRSD: 84 T: 13 QT: 348 QTc: 386 Interpretive Statements Normal sinus rhythm Electronically Signed On 07-12-2025 12:03:17 PST by Kt Zelaya MD
--- NOTE | 2025-07-12 10:37 | DI.RAD.S_ITS ---
PROCEDURE: XR CHEST 1V INDICATIONS: Chest Pain TECHNIQUE: One view of the chest was acquired. COMPARISON: [facility], CR, XR CHEST 1V, 02/05/2022, 7:48. FINDINGS: Surgical changes and devices: None. Lungs and pleura: Lungs are clear. No pleural effusions or pneumothorax. Mediastinum: Mediastinal contours appear normal. Heart size is normal. Bones and chest wall: No suspicious bony lesions. Overlying soft tissues appear unremarkable. IMPRESSION: No acute cardiopulmonary pathology. Dictated by: Jayce Wadsworth M.D. on 07/12/2025 at 11:33 Approved by: Jayce Wadsworth M.D. on 07/12/2025 at 11:33
--- NOTE | 2025-07-12 10:55 | ED.CHESTPAIN ---
HPI - Chest Pain General Chief Complaint: Chest Pain Stated Complaint: Fell a week ago , headache, numbness x 2 days Time Seen by Provider: 07/12/25 10:44 Source: patient Mode of arrival: Wheelchair History of Present Illness HPI narrative: 69 years old female came in today complaining of nausea vomiting diarrhea, whole-body tingling sensation, headaches since last night and this morning about 9:00 a.m. noticed some mild chest tightness 2/10 severity without shortness of breath, fever, runny nose, sore throat, coughing, leg pain, leg swelling, abdominal pain, back pain, dizziness, loss of consciousness. He was in our ED on 07/06/2025 for right wrist fracture after ground level fall. Related Data Home Medications ?Medication ?Instructions ?Recorded ?Confirmed MULTIMINERAL/MULTIVITAMIN (MINERAL 1 tab PO Q DAY ##0 06/28/12 07/09/25 COMPLEX) Previous Rx's ?Medication ?Instructions ?Recorded oxycodone 5 mg tablet 5 mg PO Q6H PRN pain #14 tabs 07/06/25 hydrocodone 5 mg-acetaminophen 325 1 tab PO Q4-6H PRN pain #30 tabs 07/09/25 mg tablet ondansetron HCl 4 mg tablet 4 mg PO Q6H PRN nausea and 07/12/25 vomiting #20 tabs Allergies Allergy/AdvReac Type Severity Reaction Status Date / Time Proton Pump Inhibitors Allergy Mild MIGRAINES Verified 07/12/25 10:31 (PROTON PUMP INHIBITORS) Review of Systems Review of Systems Narrative: Positive for nausea vomiting diarrhea, whole-body tingling sensation, headaches since last night and this morning about 9:00 a.m. noticed some mild chest tightness 2/10 severity. She also reported dark and brown color diarrhea without any blood. negative for shortness of breath, fever, runny nose, sore throat, coughing, leg pain, leg swelling, abdominal pain, back pain, dizziness, loss of consciousness. Patient History Medical History (Updated 07/12/25 @ 14:58 by Lamar Roberts MD) Ear pain Hematuria Strain of gastrocnemius muscle Postmenopausal atrophic vaginitis Microscopic hematuria FHx: migraine headaches GERD (gastroesophageal reflux disease) Asthma Arthritis Surgical History (Updated 01/23/25 @ 14:06 by Sofie Montgomery MA) [place] teeth removed Status post knee surgery History of repair of hiatal hernia Family History Father Stomach cancer Lung cancer Social History household members: spouse alcohol intake frequency: 0-2 drinks per day Exam Narrative Exam Narrative: GENERAL: Alert awake without acute distress. HEAD: Atraumatic. Normocephalic. NECK: Trachea midline. Non tender CARDIOVASCULAR: Regular rate and rhythm without murmurs, gallops, or rubs. RESPIRATORY: Clear to auscultation. Breath sounds equal bilaterally. No wheezes, rales, or rhonchi. GASTROINTESTINAL: Abdomen soft, non-tender, nondistended. EXTREMITIES: No edema or joint tenderness. BACK: Nontender without deformity or crepitance. No flank tenderness. NEURO: AOx3. Moving all extremities. Answering questions appropriately. SKIN: No rash or erythema of visible areas Initial Vital Signs Initial Vital Signs: Vital Signs Temperature 97.0 F L 07/12/25 10:31 Pulse Rate 101 H 07/12/25 10:31 Respiratory Rate 15 07/12/25 10:31 Blood Pressure 148/81 H 07/12/25 10:31 Pulse Oximetry 98 07/12/25 10:31 Oxygen Delivery Method Room Air 07/12/25 10:31 Course Orders Ordered: Discontinued Medications Hydromorphone HCl (Hydromorphone Hcl 0.5 Mg/0.5 Ml Syringe) 0.5 mg IV NOW ONE Stop: 07/12/25 14:55 Last Admin: 07/12/25 15:04 Dose: 0.5 mg Documented By: SIGIFREDO Sodium Chloride (Normal Saline 0.9%) 500 mls @ 1,000 mls/hr IV BOLUS ONE Stop: 07/12/25 11: Last Infusion: 07/12/25 12:48 Dose: Infused Documented By: Admin: 07/12/25 11: Dose: 1,000 mls/hr Documented By: SIGIFREDO Ondansetron HCl (Ondansetron 4 Mg/2 Ml Inj) 4 mg IV NOW ONE Stop: 07/12/25 11: Last Admin: 07/12/25 11:27 Dose: 4 mg Documented By: SIGIFREDO Vital Signs Vital signs: Vital Signs - 8 hr 07/12/25 10:31 07/12/25 10:46 07/12/25 10:48 Temperature 97.0 F L Pulse Rate 101 H 85 85 Respiratory Rate 15 12 Blood Pressure 148/81 H Pulse Oximetry 98 99 98 Oxygen Delivery Method Room Air 07/12/25 10:48 07/12/25 11:00 07/12/25 11:00 Temperature Pulse Rate 88 Respiratory Rate 18 Blood Pressure 168/89 H 151/70 H Pulse Oximetry 98 Oxygen Delivery Method 07/12/25 11:30 07/12/25 11:30 07/12/25 12:00 Temperature Pulse Rate 79 Respiratory Rate 24 Blood Pressure 128/71 126/69 Pulse Oximetry 98 Oxygen Delivery Method 07/12/25 12:00 07/12/25 12:30 07/12/25 12:30 Temperature Pulse Rate 78 68 Respiratory Rate 14 14 Blood Pressure 111/64 Pulse Oximetry 97 96 Oxygen Delivery Method 07/12/25 13:00 07/12/25 13:00 Temperature Pulse Rate 77 Respiratory Rate 14 Blood Pressure 116/66 Pulse Oximetry 98 Oxygen Delivery Method MDM - Chest Pain Lab Data 07/12/25 11:16 07/12/25 11:16 Labs: Lab Results 07/12/25 07/12/25 Range/Units 11:16 14:03 WBC 10.3 (4.5-11.0) X10^3/uL RBC 4.44 (4.0-5.2) X10^6/uL Hgb 13.4 (12.0-16.0) g/dL Hct 39.0 (36-46) % MCV 87.9 (80-100) fL MCH 30.3 (26-34) PG MCHC 34.5 (30-36) % RDW 14.0 (11.6-14.8) % Plt Count 452 H (150-400) X10^3/uL Neut % (Auto) 77.8 H (50-75) % Lymph % (Auto) 13.7 L (25-40) % [place] % (Auto) 7.8 (3-14) % Eos % (Auto) 0.3 L (2-4) % Baso % (Auto) 0.4 (0-2) % Neut # (Auto) 8000 H (5639-1332) /uL Lymph # (Auto) 1400 (4565-4228) /uL [place] # (Auto) 800 (0-900) /uL Eos # (Auto) 0 (0-450) /uL Baso # (Auto) 0 (0-100) /uL PT 10.9 (9.4-12.5) SECONDS INR 1.0 (0.9-1.3) APTT 29 (25.1-36.5) SECONDS D-Dimer 1582 H (<500) ng/ml Sodium 131 L (137-145) mmol/L Potassium 3.9 (3.4-5.1) mmol/L Chloride 94 L (98-107) mmol/L Carbon Dioxide 27 (22-32) mmol/L BUN 13 (7-17) mg/dL Creatinine 0.64 (0.52-1.04) mg/dL Estimated GFR > 60 (>60) mL/min BUN/Creatinine Ratio 20.3 (6-22) Glucose 113 H (70-99) mg/dL Calcium 10.0 (8.4-10.2) mg/dL Magnesium 2.0 (1.6-2.3) mg/dL Total Bilirubin 0.4 (0.2-1.3) mg/dL AST 34 (14-36) IU/L ALT 21 (<35) IU/L Alkaline Phosphatase 105 (38-126) U/L Total Creatine Kinase 50 (30-135) U/L Troponin I < 0.012 < 0.012 (0.01-0.034) ng/mL NT-Pro-B Natriuret Pep 88 (<125) pg/mL Total Protein 8.2 (6.3-8.2) g/dL Albumin 4.8 (3.5-5.0) g/dL Globulin 3.4 (1.7-4.1) g/dL Albumin/Globulin Ratio 1.4 (1.0-2.8) Lipase 116 (23-300) U/L ECG Data Interpretation: EKG showed normal sinus rhythm at rate 74 beats per minute without ischemic ST-T changes. No prolonged QT. MDM Narrative Medical decision making narrative: 69 years old female came in today complaining of nausea vomiting diarrhea, whole-body tingling sensation, headaches since last night and this morning about 9:00 a.m. noticed some mild chest tightness 2/10 severity without shortness of breath, fever, runny nose, sore throat, coughing, leg pain, leg swelling, abdominal pain, back pain, dizziness, loss of consciousness. He was in our ED on 07/06/2025 for right wrist fracture after ground level fall. Her CV exam, lung exam, abdominal exam were normal. Her neuro exam was intact without focal deficit. She alert oriented x4 without acute distress in the ED. she has no further nausea vomiting or diarrhea in the ED. Her CBC showed platelets of 452,000 otherwise normal CBC. Her PT INR PTT were normal. Her D-dimer was elevated 1582. Her BMP shows sodium 131 otherwise normal BMP.. Her magnesium was normal. Her CK, BNP, LFT, lipase and 2 set troponins were normal. Her CTA chest showed no PE or other acute finding. Her chest x-ray was normal. She was given IV normal saline 1 L, Zofran and IV Dilaudid and was feeling better. She will continue her Vicodin and follow up with her orthopedic surgeon outpatient as well as her PCP. Return to the ED precaution was given. Discharge Plan Departure Patient Disposition: Home Clinical Impression: Nausea vomiting and diarrhea, Wrist pain, right, Atypical chest pain Instructions: Diarrhea, DI for Chest Pain, Nausea and Vomiting-Adult Activity Restrictions/Additional Instructions: please come back to the emergency room if any worsening symptoms including but not limited to dehydration, persisting vomiting or persistent diarrhea, fever, abdominal pain, chest pain, shortness of breath. Prescriptions: New ondansetron HCl 4 mg tablet 4 mg PO Q6H PRN (Reason: nausea and vomiting) Qty: 20 0RF No Action MULTIMINERAL/MULTIVITAMIN (MINERAL COMPLEX) 1 tab PO Q DAY Qty: 0 oxycodone 5 mg tablet 5 mg PO Q6H PRN (Reason: pain) Qty: 14 0RF hydrocodone-acetaminophen 5-325 mg tablet 1 tab PO Q4-6H PRN (Reason: pain) Qty: 30 0RF Referrals: Nita Fajardo DO [Primary Care Provider, Family Practice] Stand Alone Forms: Patient Portal/API
[2025-07-12] MEDS: SODIUM CHLORIDE 0.9% 500 ML 1000 ML IV (11:23)
[2025-07-12] MEDS: ONDANSETRON 4 MG/2 ML INJ IV (11:27)
[2025-07-12 11:32] LABS: Add Manual Diff / Slide Review NO; Hematocrit 39.0 % (36-46); Hemoglobin 13.4 g/dL (12.0-16.0); Lymphocytes Absolute Auto 1400 /uL (1100-4500); Mean Corpuscular HGB Conc 34.5 % (30-36); Mean Corpuscular Hemoglobin 30.3 PG (26-34); Mean Corpuscular Volume 87.9 fL (80-100); Platelet Count 452 X10^3/uL (150-400)
[2025-07-12 11:41] LABS: INR 1.0 (0.9-1.3); Prothrombin Time 10.9 SECONDS (9.4-12.5)
[2025-07-12 11:43] LABS: PTT Partial Thromboplastin Tim 29 SECONDS (25.1-36.5)
[2025-07-12 12:06] LABS: Alanine Aminotransferase 21 IU/L (<35); Albumin 4.8 g/dL (3.5-5.0); Albumin Globulin Ratio 1.4 (1.0-2.8); Alkaline Phosphatase 105 U/L (38-126); Blood Urea Nitrogen 13 mg/dL (7-17); Calcium 10.0 mg/dL (8.4-10.2); Carbon Dioxide 27 mmol/L (22-32); Chloride 94 mmol/L (98-107); Creatine Kinase 50 U/L (30-135); Estimated Glomerular Filt Rate > 60 mL/min (>60); Globulin 3.4 g/dL (1.7-4.1); Glucose 113 mg/dL (70-99); HEMOLYSIS < 15 (0-50); Lipase 116 U/L (23-300); Magnesium 2.0 mg/dL (1.6-2.3); Potassium 3.9 mmol/L (3.4-5.1); Sodium 131 mmol/L (137-145); Total Protein 8.2 g/dL (6.3-8.2)
[2025-07-12 12:17] LABS: NT-proBNP (BNP-Adult 18+) 88 pg/mL (<125); Troponin I < 0.012 ng/mL (0.01-0.034)
--- NOTE | 2025-07-12 12:57 | DI.CT.S_ITS ---
PROCEDURE: CT ANGIO CHEST PE PROTOCOL INDICATIONS: chest pain. Elevation D-dimer TECHNIQUE: After the administration of intravenous contrast, 2 mm thick sections acquired from the pulmonary apices to the posterior costophrenic angles. 3-dimensional maximum intensity projection (MIP) coronal and sagittal reformats were then acquired through the thorax. For radiation dose reduction, the following was used: automated exposure control, adjustment of mA and/or kV according to patient size. COMPARISON: [facility], CT, CT ANGIO CHEST PE PROTOCOL, 02/05/2022, 8:49. FINDINGS: Image quality: Diagnostic. Pulmonary arteries: Pulmonary arteries are normal in size, and demonstrate no intraluminal filling defects to suggest central pulmonary embolism. Lower Neck: No enlarged lymph nodes. Thyroid: No thyroid nodules which require sonographic follow up, per consensus guidelines. Axillae: No enlarged lymph nodes. Chest Wall: Unremarkable. Bones: Unremarkable. Lungs and Pleura: No pneumothorax or pleural effusions. No consolidation or suspicious nodules. Heart: Heart size is normal. No pericardial effusion. Thoracic Vessels: No aortic aneurysm. Mediastinum and Laura: No enlarged lymph nodes. Esophagus: No wall thickening. No hiatal hernia. Upper Abdomen: Visualized upper abdomen solid organs and bowel loops appear normal. IMPRESSION: No pulmonary embolus. No acute cardiopulmonary process. Dictated by: Juan R Bravo M.D. on 07/12/2025 at 13:41 Approved by: Juan R Bravo M.D. on 07/12/2025 at 13:43
[2025-07-12 14:34] LABS: Troponin I < 0.012 ng/mL (0.01-0.034)
== END 2025-07-12 15:43 | disposition home or self-care (01) ==
PROVIDERS: Emergency Provider Emergency Medicine; PCP Family Medicine
DX: R11.2 Nausea with vomiting, unspecified (principal); R19.7 Diarrhea, unspecified; R07.89 Other chest pain; M25.531 Pain in right wrist
CPT/HCPCS: 36415; 71045; 71275; 80053; 82550; 83690; 83735; 83880; 84484; 85025; 85379; 85610; 85730; 93005; 93010; 96361; 96374; 96375; 99284; J1171; J2405; J7040; Q9967